=== PATIENT | female | born 1965 | race Caucasian/White ===

== ENCOUNTER → 2018-02-18 11:58 | Outpatient (CLI) | payer OTHER, SELFPAY ==
[2018-02-18 14:37] LABS: Anion Gap 9 (5-15); BUN 15 mg/dL (7-18); BUN/Creat Ratio 16.1 RATIO (10-20); Calcium,Total 9.2 mg/dL (8.5-10.1); Chloride 102 mmol/L (98-107); Creatinine, Serum 0.93 mg/dL (0.55-1.02); EST Glomerular Filtration Rate 67 mL/min (>60); Est Glom Filt Rate - Afr Amer 81 mL/min (>60); Glucose 94 mg/dL (74-106); Potassium 4.1 mmol/L (3.5-5.1); Sodium Level 140 mmol/L (136-145)
== END ==
PROVIDERS: Family Provider Family Medicine; PCP Family Medicine; Visit Provider Family Medicine
DX: I10 Essential (primary) hypertension (principal); E03.9 Hypothyroidism, unspecified
CPT/HCPCS: 36415; 80048; 84443

== ENCOUNTER → 2018-02-18 15:49 | Outpatient (CLI) | payer OTHER, SELFPAY ==
[2018-02-25 12:09] LABS: HPV Reflexed? NOT INDICATED
== END ==
PROVIDERS: Visit Provider Obstetrics & Gynecology
DX: Z12.4 Encounter for screening for malignant neoplasm of cervix (principal)
CPT/HCPCS: 88175; G0145

== ENCOUNTER → 2018-07-11 08:16 | Outpatient (CLI) | payer OTHER, SELFPAY ==
--- NOTE | 2018-07-11 08:20 | BI_ITS ---
MAMMOGRAPHY - BILATERAL SCREENING REASON FOR EXAM: Female, 52 years old. Routine annual screening examination. PERTINENT HISTORY: Mother with breast cancer. TECHNIQUE: Digital bilateral breast claudia (3D mammographic acquisition) in the CC and MLO projections. 2-D mediolateral oblique (MLO) and craniocaudad (CC) views of both breasts were obtained. CAD: Full Field Digital Mammography with Computer Added Detection was performed. COMPARISON: Comparison is made with prior study dated March 06, 2016 and July 13, 2014. FINDINGS: Breast Composition: The breasts are heterogeneously dense, which may obscure small masses. There are no dominant masses or suspicious calcifications. No other significant abnormalities are identified. There has been no significant change since the prior study. BI/SCREENING MAMM (CAD), BILAT IMPRESSION: Stable bilateral screening mammogram. Yearly follow-up mammogram recommended. (A) ASSESSMENT CATEGORY: BIRADS Category 1: Negative. A letter regarding these results will be sent to the patient by the facility within 30 days. Approximately 10% of breast cancers are not detected by mammography. A normal mammogram should not delay biopsy of a clinically suspicious abnormality. [id number] Electronically Signed: Ashwin Hartley MD at 8:17 EST Tel [phone], Service support ,
== END ==
PROVIDERS: Family Provider Family Medicine; PCP Family Medicine; Referring Provider Obstetrics & Gynecology; Visit Provider Obstetrics & Gynecology
DX: Z12.31 Encounter for screening mammogram for malignant neoplasm of breast (principal)
CPT/HCPCS: 77063; 77067

== ENCOUNTER → 2018-11-04 09:40 | Outpatient (CLI) | payer OTHER, SELFPAY ==
[2018-11-04 13:42] LABS: Anion Gap 3 (5-15); BUN 12 mg/dL (7-18); BUN/Creat Ratio 13.2 RATIO (10-20); Calcium,Total 8.7 mg/dL (8.5-10.1); Chloride 105 mmol/L (98-107); Cholesterol 171 mg/dL (200); Creatinine, Serum 0.91 mg/dL (0.55-1.02); EST Glomerular Filtration Rate 69 mL/min (>60); Est Glom Filt Rate - Afr Amer 84 mL/min (>60); Free T3 3.9 pg/mL (2.18-3.98); Glucose 77 mg/dL (74-106); High Density Lipoprotein 73 mg/dL; Potassium 3.7 mmol/L (3.5-5.1); Sodium Level 137 mmol/L (136-145); T4 Total, Thyroxin 8.2 ug/dL (4.8-13.9); Thyroid Stim Hormone (TSH) 3.05 uIU/mL (0.358-3.74); Triglycerides 58 mg/dL; Very Low Density Lipoprotein 12 mg/dL (5-40)
== END ==
PROVIDERS: Family Provider Family Medicine; PCP Family Medicine; Referring Provider Family Medicine; Visit Provider Family Medicine
DX: Z00.00 Encounter for general adult medical examination without abnormal findings (principal); E03.9 Hypothyroidism, unspecified; I10 Essential (primary) hypertension
CPT/HCPCS: 36415; 80048; 80061; 84436; 84443; 84481

== ENCOUNTER → 2019-05-05 09:35 | Outpatient (CLI) | payer OTHER, SELFPAY ==
[2017-06-05 14:42] VITALS: BMI 23.0
[2019-05-05 13:25] LABS: Anion Gap 6 (5-15); BUN 10 mg/dL (7-18); BUN/Creat Ratio 10.8 RATIO (10-20); Chloride 106 mmol/L (98-107); Cholesterol 173 mg/dL (200); Creatinine, Serum 0.92 mg/dL (0.55-1.02); EST Glomerular Filtration Rate 68 mL/min (>60); Est Glom Filt Rate - Afr Amer 82 mL/min (>60); Free T3 3.8 pg/mL (2.18-3.98); Glucose 73 mg/dL (74-106); High Density Lipoprotein 69 mg/dL; Sodium Level 141 mmol/L (136-145); T4 Total, Thyroxin 9.8 ug/dL (4.8-13.9); Thyroid Stim Hormone (TSH) 3.31 uIU/mL (0.358-3.74); Triglycerides 58 mg/dL; Very Low Density Lipoprotein 12 mg/dL (5-40)
== END ==
PROVIDERS: Family Provider Family Medicine; PCP Family Medicine; Referring Provider Family Medicine; Visit Provider Family Medicine
DX: E03.9 Hypothyroidism, unspecified (principal); I10 Essential (primary) hypertension
CPT/HCPCS: 36415; 80048; 80061; 84436; 84443; 84481

== ENCOUNTER → 2019-07-17 10:16 | Outpatient (CLI) | payer OTHER, SELFPAY ==
--- NOTE | 2019-07-17 10:18 | BI_ITS ---
MAMMOGRAPHY - BILATERAL SCREENING 3-D TOMOSYNTHESIS REASON FOR EXAM: Female, 53 years old. Annual routine screening mammogram. PERTINENT HISTORY: History of breast cancer in mother.. TECHNIQUE: 2-D mammograms and 3-D Tomosynthesis of the breast (s) were performed. CAD was performed. COMPARISON: July 11, 2018, March 06, 2016 FINDINGS: The breast composition is composed of scattered fibroglandular density. No dense spiculated masses or suspicious microcalcifications are identified. No architectural distortion is identified. There is no skin thickening or retraction. There has been no significant change since the prior study. BI/SCREEN MAMM (CAD) W/JUDY BILAT IMPRESSION: No mammographic signs of malignancy. Routine yearly mammograms recommended. ASSESSMENT CATEGORY: BIRADS Category 1: Negative. A letter regarding these results will be sent to the patient by the facility within 30 days. FOLLOW UP RECOMMENDATION: Yearly follow up mammogram recommended. (A) Approximately 10% of breast cancers are not detected by mammography. A normal mammogram should not delay biopsy of a clinically suspicious abnormality. Electronically Signed: Servando Crooks MD at 10:36 EST , Service support ,
== END ==
PROVIDERS: Family Provider Family Medicine; PCP Family Medicine; Referring Provider Obstetrics & Gynecology; Visit Provider Obstetrics & Gynecology
DX: Z12.31 Encounter for screening mammogram for malignant neoplasm of breast (principal); Z80.3 Family history of malignant neoplasm of breast
CPT/HCPCS: 77063; 77067

== ENCOUNTER → 2020-04-25 10:26 | Outpatient (CLI) | payer OTHER, SELFPAY ==
[2017-06-05 14:42] VITALS: BMI 23.0
[2020-04-25 13:03] LABS: Anion Gap 4 (5-15); BUN 9 mg/dL (7-18); Calcium,Total 9.1 mg/dL (8.5-10.1); Chloride 102 mmol/L (98-107); Cholesterol 188 mg/dL (200); Creatinine, Serum 0.82 mg/dL (0.55-1.02); EST Glomerular Filtration Rate 78 mL/min (>60); Est Glom Filt Rate - Afr Amer 94 mL/min (>60); Free T3 3.4 pg/mL (2.18-3.98); Glucose 79 mg/dL (74-106); High Density Lipoprotein 67 mg/dL; Potassium 3.7 mmol/L (3.5-5.1); Sodium Level 138 mmol/L (136-145); T4 Free Direct 1.01 ng/dL (0.76-1.46); Thyroid Stim Hormone (TSH) 3.29 uIU/mL (0.358-3.74); Triglycerides 61 mg/dL; Very Low Density Lipoprotein 12 mg/dL (5-40)
== END ==
PROVIDERS: PCP Family Medicine; Referring Provider Family Medicine; Visit Provider Family Medicine
DX: E03.9 Hypothyroidism, unspecified (principal); I10 Essential (primary) hypertension
CPT/HCPCS: 36415; 80048; 80061; 84439; 84443; 84481

== ENCOUNTER → 2020-07-30 15:28 | Outpatient (CLI) | payer OTHER, SELFPAY ==
[2017-06-05 14:42] VITALS: BMI 23.0
--- NOTE | 2020-07-30 15:30 | BI_ITS ---
MAMMOGRAPHY - BILATERAL SCREENING REASON FOR EXAM: Female, 54 years old. Routine annual screening examination. PERTINENT HISTORY: Mother with breast cancer. TECHNIQUE: Digital bilateral breast judy (3D mammographic acquisition) in the CC and MLO projections. 2-D mediolateral oblique (MLO) and craniocaudad (CC) views of both breasts were obtained. CAD: Full Field Digital Mammography with Computer Added Detection was performed. COMPARISON: Comparison is made with prior study dated 07/17/2019 and 07/11/2018. FINDINGS: Breast Composition: The breasts are heterogeneously dense, which may obscure small masses. There are no dominant masses or suspicious calcifications. No other significant abnormalities are identified. There has been no significant change since the prior study. BI/SCREEN MAMM (CAD) W/JUDY BILAT IMPRESSION: Stable bilateral screening mammogram. Yearly follow-up mammogram recommended. (A) ASSESSMENT CATEGORY: BIRADS Category 1: Negative. A letter regarding these results will be sent to the patient by the facility within 30 days. Approximately 10% of breast cancers are not detected by mammography. A normal mammogram should not delay biopsy of a clinically suspicious abnormality. [id number] Electronically Signed: Ashwin Hartley, at 8:39 EST , Service support ,
--- NOTE | 2020-07-30 15:37 | BD_ITS ---
STUDY: DUAL ENERGY X-RAY ABSORPTIOMETRY / DXA REASON FOR EXAM: Female, 54 years old. 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 COMPARISON: Comparison is made with prior study dated 08/08/2013. FINDINGS: Lumbar Spine (L1-L4): g/cm2 (1.003) / T-score (-1.5) / Z-score (-0.8) Findings are suggestive of osteopenia with a low fracture risk. Left Femur Total: g/cm2 (0.863) / T-score (-1.2) / Z-score (-0.6) Left Femoral Neck: g/cm2 (0.808) / T-score (-1.7) / Z-score (-0.7) Right Femur Total: g/cm2 (0.818) / T-score (-1.5) / Z-score (-0.9) Right Femoral Neck: g/cm2 (0.764) / T-score (-2.0) / Z-score (-1.0) The T-Scores on the most recent prior examination were: Lumbar Spine (L1-L4): There has been worsening of bone density since the previous examination. Left Femur Total: which represents a worsening of 1.3%. Right Femur Total: which represents a worsening of 4.6%. BD/Dexa Bone Density Study IMPRESSION: The patient is considered osteopenic as outlined below according to World Joel Organization (WHO) criteria with a moderate fracture risk. There has been worsening of bone density since the previous examination. Reference Information: The T-score is the number of standard deviations above or below the standard which is normal for young adults at their peak bone mineral density. The World Health Organization (WHO) interprets the T-scores as follows: Above -1 Normal bone density Between -1 and -2.5 Osteopenia Equal to / or below -2.5 Osteoporosis As a practical clinical guideline, osteopenia may be graded as follows: Mild -1 through -1.5 Moderate -1.6 through -2.0 Severe -2.1 through -2.4 The Z-score is the number of standard deviations above or below age-matched controls. A Z-score of less than -1.5 would be considered abnormal. References: 1. NIH Osteoporosis and Related Bone Diseases www osteo.org 2. International Society for Clinical Densitometry www iscd.org 3. National Osteoporosis Foundation www nof.org Electronically Signed: Ashwin Hatrley, at 14:12 EST , Service support ,
== END ==
PROVIDERS: PCP Family Medicine; Referring Provider Student in an Organized Health Care Education/Training Program; Visit Provider Student in an Organized Health Care Education/Training Program
DX: M85.80 Other specified disorders of bone density and structure, unspecified site (principal); Z78.0 Asymptomatic menopausal state; Z12.31 Encounter for screening mammogram for malignant neoplasm of breast; Z80.3 Family history of malignant neoplasm of breast
CPT/HCPCS: 77063; 77067; 77080

== ENCOUNTER 2020-12-19 06:36 | Outpatient (RCR) | payer OTHER, SELFPAY | END 2021-01-28 23:59 | LOC: IMMUN 06:36 | PROVIDERS: PCP Family Medicine; Referring Provider Family Medicine; Visit Provider Family Medicine | DX: Z23 Encounter for immunization (principal) | CPT/HCPCS: 0001A; 0002A; 91300 ==

== ENCOUNTER → 2021-04-24 08:13 | Outpatient (CLI) | payer OTHER, SELFPAY ==
[2021-04-24 10:40] LABS: Anion Gap 6 (5-15); BUN 11 mg/dL (7-18); BUN/Creat Ratio 14.2 RATIO (10-20); Calcium,Total 8.7 mg/dL (8.5-10.1); Chloride 109 mmol/L (98-107); Cholesterol 167 mg/dL (200); Creatinine, Serum 0.77 mg/dL (0.55-1.02); EST Glomerular Filtration Rate 83 mL/min (>60); Est Glom Filt Rate - Afr Amer 100 mL/min (>60); Free T3 3.5 pg/mL (2.18-3.98); Glucose 92 mg/dL (74-106); High Density Lipoprotein 56 mg/dL; Potassium 3.5 mmol/L (3.5-5.1); Sodium Level 142 mmol/L (136-145); T4 Free Direct 0.89 ng/dL (0.76-1.46); Thyroid Stim Hormone (TSH) 4.09 uIU/mL (0.358-3.74); Triglycerides 76 mg/dL; Very Low Density Lipoprotein 15 mg/dL (5-40)
== END ==
PROVIDERS: PCP Family Medicine; Referring Provider Family Medicine; Visit Provider Family Medicine
DX: Z00.00 Encounter for general adult medical examination without abnormal findings (principal); E03.9 Hypothyroidism, unspecified
CPT/HCPCS: 36415; 80048; 80061; 84439; 84443; 84481

== ENCOUNTER 2021-09-02 16:04 | Outpatient (CLI) | payer OTHER, SELFPAY ==
[2021-09-06 16:29] LABS: HPV APTIMA, High Risk Negative (Negative)
== END 2021-09-02 23:59 | disposition short-term general hospital (02) ==
LOC: LABSPEC 16:06
PROVIDERS: PCP Family Medicine; Visit Provider Student in an Organized Health Care Education/Training Program
DX: Z12.4 Encounter for screening for malignant neoplasm of cervix (principal)
CPT/HCPCS: 87624; 88175; G0145

== ENCOUNTER 2021-10-17 09:14 | Outpatient (CLI) | payer OTHER, SELFPAY ==
[2021-10-17 11:04] LABS: Anion Gap 5 (5-15); BUN 12 mg/dL (7-18); Calcium,Total 9.4 mg/dL (8.5-10.1); Chloride 106 mmol/L (98-107); Cholesterol 181 mg/dL (200); Creatinine, Serum 0.92 mg/dL (0.55-1.02); EST Glomerular Filtration Rate 67 mL/min (>60); Est Glom Filt Rate - Afr Amer 81 mL/min (>60); Free T3 3.4 pg/mL (2.18-3.98); Glucose 84 mg/dL (74-106); High Density Lipoprotein 67 mg/dL; Potassium 3.6 mmol/L (3.5-5.1); Sodium Level 139 mmol/L (136-145); T4 Free Direct 0.97 ng/dL (0.76-1.46); Thyroid Stim Hormone (TSH) 4.31 uIU/mL (0.358-3.74); Triglycerides 67 mg/dL; Very Low Density Lipoprotein 13 mg/dL (5-40)
== END 2021-10-17 23:59 | disposition home or self-care (01) ==
LOC: MFPLAB 09:15
PROVIDERS: PCP Family Medicine; Referring Provider Family Medicine; Visit Provider Family Medicine
DX: I10 Essential (primary) hypertension (principal); E03.9 Hypothyroidism, unspecified
CPT/HCPCS: 36415; 80048; 80061; 84439; 84443; 84481

== ENCOUNTER → 2021-12-17 | Outpatient (CLI) | payer OTHER, SELFPAY ==
--- NOTE | 2021-12-17 16:02 | BI_ITS ---
MAMMOGRAPHY - BILATERAL SCREENING REASON FOR EXAM: Female, 56 years old. Routine annual screening examination. PERTINENT HISTORY: Mother with breast cancer. TECHNIQUE: Digital bilateral breast judy (3D mammographic acquisition) in the CC and MLO projections. 2-D mediolateral oblique (MLO) and craniocaudad (CC) views of both breasts were obtained. CAD: Full Field Digital Mammography with Computer Added Detection was performed. COMPARISON: Comparison is made with prior study dated 07/30/2020 and 07/17/2019. FINDINGS: Breast Composition: The breasts are heterogeneously dense, which may obscure small masses. There are no dominant masses or suspicious calcifications. Stable benign-appearing bilateral axillary No other significant abnormalities are identified. There has been no significant change since the prior study. BI/SCRN MAMM (CAD)W/JUDY BILAT IMPRESSION: Stable bilateral screening mammogram. Yearly follow-up mammogram recommended. (A) ASSESSMENT CATEGORY: BIRADS Category 2: Benign. A letter regarding these results will be sent to the patient by the facility within 30 days. Approximately 10% of breast cancers are not detected by mammography. A normal mammogram should not delay biopsy of a clinically suspicious abnormality. [id number] Electronically Signed: Ashwin Hartley MD at 8:03 EDT ,
== END | disposition home or self-care (01) ==
LOC: OPBI 15:50
PROVIDERS: PCP Family Medicine; Visit Provider Student in an Organized Health Care Education/Training Program
DX: Z12.31 Encounter for screening mammogram for malignant neoplasm of breast (principal); Z80.3 Family history of malignant neoplasm of breast
CPT/HCPCS: 77063; 77067

== ENCOUNTER → 2022-01-14 | Outpatient (CLI) | payer OTHER, SELFPAY ==
[2022-01-14 10:53] LABS: Vitamin D,25 Hydroxy 39.6 ng/mL
[2022-01-14 11:06] LABS: AST(SGOT) 24 U/L (15-37); Alanine Aminotransfer ALT/SGPT 29 U/L (13-56); Albumin, Serum 3.8 g/dL (3.2-5.0); Alkaline Phosphatase 75 U/L (45-117); Anion Gap 4 (5-15); BUN 12 mg/dL (7-18); BUN/Creat Ratio 14.7 RATIO (10-20); Calcium,Total 9.2 mg/dL (8.5-10.1); Chloride 103 mmol/L (98-107); Creatinine, Serum 0.82 mg/dL (0.55-1.02); EST Glomerular Filtration Rate 77 mL/min (>60); Est Glom Filt Rate - Afr Amer 93 mL/min (>60); Free T3 3.9 pg/mL (2.18-3.98); Globulin 3.9 g/dL (2.2-4.2); Glucose 99 mg/dL (74-106); Potassium 3.7 mmol/L (3.5-5.1); Protein, Total 7.7 g/dL (6.4-8.2); Sodium Level 138 mmol/L (136-145); T4 Free Direct 1.45 ng/dL (0.76-1.46); Thyroid Stim Hormone (TSH) 0.66 uIU/mL (0.358-3.74)
== END | disposition home or self-care (01) ==
LOC: MTLAB 08:32
PROVIDERS: PCP Family Medicine; Referring Provider Nurse Practitioner Adult Health; Visit Provider Nurse Practitioner Adult Health
DX: E03.8 Other specified hypothyroidism (principal); E55.9 Vitamin D deficiency, unspecified
CPT/HCPCS: 36415; 80053; 82306; 84439; 84443; 84481

== ENCOUNTER → 2022-03-18 | Outpatient (CLI) | payer OTHER, SELFPAY ==
[2022-03-18 10:18] LABS: T4 Free Direct 1.37 ng/dL (0.76-1.46); Thyroid Stim Hormone (TSH) 0.65 uIU/mL (0.358-3.74)
== END | disposition home or self-care (01) ==
LOC: MTLAB 07:13
PROVIDERS: PCP Family Medicine; Referring Provider Nurse Practitioner Adult Health; Visit Provider Nurse Practitioner Adult Health
DX: E03.8 Other specified hypothyroidism (principal)
CPT/HCPCS: 36415; 84439; 84443; 84481

== ENCOUNTER → 2022-04-22 | Outpatient (CLI) | payer OTHER, SELFPAY ==
[2022-04-22 18:21] LABS: Vitamin D,25 Hydroxy 43.9 ng/mL
[2022-04-22 18:29] LABS: AST(SGOT) 17 U/L (15-37); Alanine Aminotransfer ALT/SGPT 20 U/L (13-56); Albumin, Serum 3.8 g/dL (3.2-5.0); Alkaline Phosphatase 69 U/L (45-117); Anion Gap 6 (5-15); BUN 14 mg/dL (7-18); BUN/Creat Ratio 15.3 RATIO (10-20); Calcium,Total 9.3 mg/dL (8.5-10.1); Chloride 105 mmol/L (98-107); Creatinine, Serum 0.92 mg/dL (0.55-1.02); EST Glomerular Filtration Rate 67 mL/min (>60); Est Glom Filt Rate - Afr Amer 82 mL/min (>60); Free T3 2.8 pg/mL (2.18-3.98); Globulin 3.9 g/dL (2.2-4.2); Glucose 107 mg/dL (74-106); Potassium 3.3 mmol/L (3.5-5.1); Protein, Total 7.7 g/dL (6.4-8.2); Sodium Level 139 mmol/L (136-145); T4 Free Direct 1.04 ng/dL (0.76-1.46)
== END | disposition home or self-care (01) ==
LOC: MTLAB 16:18
PROVIDERS: PCP Family Medicine; Referring Provider Internal Medicine Endocrinology, Diabetes & Metabolism; Visit Provider Internal Medicine Endocrinology, Diabetes & Metabolism
DX: E03.8 Other specified hypothyroidism (principal); E55.9 Vitamin D deficiency, unspecified
CPT/HCPCS: 36415; 80053; 82306; 84439; 84443; 84481

== ENCOUNTER → 2022-06-03 | Outpatient (CLI) | payer OTHER, SELFPAY ==
[2022-06-03 11:06] LABS: Free T3 3.8 pg/mL (2.18-3.98); Thyroid Stim Hormone (TSH) 1.18 uIU/mL (0.358-3.74)
== END | disposition home or self-care (01) ==
LOC: MTLAB 08:55
PROVIDERS: PCP Family Medicine; Referring Provider Internal Medicine Endocrinology, Diabetes & Metabolism; Visit Provider Internal Medicine Endocrinology, Diabetes & Metabolism
DX: E03.8 Other specified hypothyroidism (principal)
CPT/HCPCS: 36415; 84439; 84443; 84481

== ENCOUNTER → 2022-09-14 | Outpatient (CLI) | payer OTHER, SELFPAY ==
[2022-09-14 10:23] LABS: ALB/GLOB Ratio 0.9 RATIO (0.9-2.4); AST(SGOT) 19 U/L (15-37); Alanine Aminotransfer ALT/SGPT 22 U/L (13-56); Albumin, Serum 3.6 g/dL (3.2-5.0); Alkaline Phosphatase 72 U/L (45-117); Anion Gap 8 (5-15); BUN 14 mg/dL (7-18); BUN/Creat Ratio 15.4 RATIO (10-20); Calcium,Total 9.1 mg/dL (8.5-10.1); Chloride 105 mmol/L (98-107); Creatinine, Serum 0.91 mg/dL (0.55-1.02); EST Glomerular Filtration Rate 68 mL/min (>60); Est Glom Filt Rate - Afr Amer 82 mL/min (>60); Free T3 3.4 pg/mL (2.18-3.98); Globulin 3.8 g/dL (2.2-4.2); Glucose 92 mg/dL (74-106); Potassium 3.5 mmol/L (3.5-5.1); Protein, Total 7.4 g/dL (6.4-8.2); Sodium Level 140 mmol/L (136-145); T4 Free Direct 1.33 ng/dL (0.76-1.46); Thyroid Stim Hormone (TSH) 1.81 uIU/mL (0.358-3.74)
== END | disposition home or self-care (01) ==
PROVIDERS: PCP Family Medicine; Referring Provider Internal Medicine Endocrinology, Diabetes & Metabolism; Visit Provider Internal Medicine Endocrinology, Diabetes & Metabolism
DX: E03.8 Other specified hypothyroidism (principal)
CPT/HCPCS: 36415; 80053; 84439; 84443; 84481

== ENCOUNTER → 2022-11-20 | Outpatient (CLI) | payer OTHER, SELFPAY ==
[2022-11-20 10:22] LABS: T4 Total, Thyroxin 10.5 ug/dL (4.8-13.9); Thyroid Stim Hormone (TSH) 1.05 uIU/mL (0.358-3.74)
[2022-11-23 11:07] LABS: T4 Free Direct 1.15 ng/dL (0.76-1.46)
== END | disposition home or self-care (01) ==
PROVIDERS: PCP Family Medicine; Referring Provider Internal Medicine Endocrinology, Diabetes & Metabolism; Visit Provider Internal Medicine Endocrinology, Diabetes & Metabolism
DX: E03.8 Other specified hypothyroidism (principal)
CPT/HCPCS: 36415; 84436; 84439; 84443; 84481

== ENCOUNTER → 2022-12-18 | Outpatient (CLI) | payer OTHER, SELFPAY ==
[2022-12-18 10:30] LABS: ALB/GLOB Ratio 1.1 RATIO (0.9-2.4); AST(SGOT) 21 U/L (15-37); Alanine Aminotransfer ALT/SGPT 27 U/L (13-56); Albumin, Serum 3.8 g/dL (3.2-5.0); Alkaline Phosphatase 76 U/L (45-117); Anion Gap 3 (5-15); BUN 13 mg/dL (7-18); BUN/Creat Ratio 15.5 RATIO (10-20); Calcium,Total 9.6 mg/dL (8.5-10.1); Chloride 106 mmol/L (98-107); Creatinine, Serum 0.84 mg/dL (0.55-1.02); EST Glomerular Filtration Rate 75 mL/min (>60); Est Glom Filt Rate - Afr Amer 90 mL/min (>60); Free T3 3.2 pg/mL (2.18-3.98); Globulin 3.6 g/dL (2.2-4.2); Glucose 87 mg/dL (74-106); Potassium 3.9 mmol/L (3.5-5.1); Protein, Total 7.4 g/dL (6.4-8.2); Sodium Level 138 mmol/L (136-145); T4 Total, Thyroxin 11.7 ug/dL (4.8-13.9); Thyroid Stim Hormone (TSH) 1.27 uIU/mL (0.358-3.74)
== END | disposition home or self-care (01) ==
LOC: MTLAB 08:32
PROVIDERS: PCP Family Medicine; Referring Provider Internal Medicine Endocrinology, Diabetes & Metabolism; Visit Provider Internal Medicine Endocrinology, Diabetes & Metabolism
DX: E03.8 Other specified hypothyroidism (principal)
CPT/HCPCS: 36415; 80053; 84436; 84443; 84481

== ENCOUNTER → 2022-12-23 | Outpatient (CLI) | payer OTHER, SELFPAY ==
--- NOTE | 2022-12-23 09:01 | BI_ITS ---
MAMMOGRAPHY - BILATERAL SCREENING REASON FOR EXAM: Female, 57 years old. Routine annual screening examination. PERTINENT HISTORY: Mother with breast cancer. TECHNIQUE: Digital bilateral breast judy (3D mammographic acquisition) in the CC and MLO projections. 2-D mediolateral oblique (MLO) and craniocaudad (CC) views of both breasts were obtained. CAD: Full Field Digital Mammography with Computer Added Detection was performed. COMPARISON: Comparison is made with prior study December 17, 2021 and July 30, 2020. FINDINGS: Breast Composition: The breasts are heterogeneously dense, which may obscure small masses. There are no dominant masses or suspicious calcifications. Stable small benign-appearing left axillary lymph nodes. No other significant abnormalities are identified. There has been no significant change since the prior study. BI/SCRN MAMM (CAD)W/JUDY BILAT IMPRESSION: Stable bilateral screening mammogram. Yearly follow-up mammogram recommended. (A) ASSESSMENT CATEGORY: BIRADS Category 2: Benign. A letter regarding these results will be sent to the patient by the facility within 30 days. Approximately 10% of breast cancers are not detected by mammography. A normal mammogram should not delay biopsy of a clinically suspicious abnormality. [id number] Electronically Signed: Ashwin Hartley MD at 10:45 EDT ,
--- NOTE | 2022-12-23 09:08 | BD_ITS ---
STUDY: DUAL ENERGY X-RAY ABSORPTIOMETRY / DXA REASON FOR EXAM: Female, 57 years old. M85.89 TECHNIQUE: Bone Mineral Density (BMD) measurements of lumbar spine and bilateral hips were obtained. COMPARISON: Comparison is made with prior study dated July 30, 2020. FINDINGS: Lumbar Spine (L1-L4): g/cm2 (0.825) / T-score (-2.0) / Z-score (-0.9) Findings are suggestive of osteopenia with a moderate fracture risk. Left Femur Total: g/cm2 (0.785) / T-score (-1.3) / Z-score (-0.5) Left Femoral Neck: g/cm2 (0.649) / T-score (-1.8) / Z-score (-0.7) Right Femur Total: g/cm2 (0.775) / T-score (-1.4) / Z-score (-0.6) Right Femoral Neck: g/cm2 (0.641) / T-score (-1.9) / Z-score (-0.8) The T-Scores on the most recent prior examination were: Lumbar Spine (L1-L4): There has been worsening of bone density since the previous examination. Left Femur Total: which represents a worsening of 1.9%. Right Femur Total: which represents an improvement of 2.3%. BD/Dexa Bone Density Study IMPRESSION: The patient is considered osteopenic as outlined below according to World Joel Organization (WHO) criteria with a moderate fracture risk. There has been worsening of bone density since the previous examination. Reference Information: The T-score is the number of standard deviations above or below the standard which is normal for young adults at their peak bone mineral density. The World Health Organization (WHO) interprets the T-scores as follows: Above -1 Normal bone density Between -1 and -2.5 Osteopenia Equal to / or below -2.5 Osteoporosis As a practical clinical guideline, osteopenia may be graded as follows: Mild -1 through -1.5 Moderate -1.6 through -2.0 Severe -2.1 through -2.4 The Z-score is the number of standard deviations above or below age-matched controls. A Z-score of less than -1.5 would be considered abnormal. References: 1. NIH Osteoporosis and Related Bone Diseases www osteo.org 2. International Society for Clinical Densitometry www iscd.org 3. National Osteoporosis Foundation www nof.org Electronically Signed: Ashwin Hartley MD at 14:31 EDT ,
== END | disposition home or self-care (01) ==
PROVIDERS: PCP Family Medicine; Referring Provider Internal Medicine Endocrinology, Diabetes & Metabolism; Visit Provider Internal Medicine Endocrinology, Diabetes & Metabolism
DX: Z12.31 Encounter for screening mammogram for malignant neoplasm of breast (principal); M85.89 Other specified disorders of bone density and structure, multiple sites; Z80.3 Family history of malignant neoplasm of breast
CPT/HCPCS: 77063; 77067; 77080

== ENCOUNTER → 2022-12-30 | Outpatient (CLI) | payer OTHER, SELFPAY ==
--- NOTE | 2022-12-30 07:24 | US_ITS ---
STUDY: ABDOMINAL ULTRASOUND - RIGHT UPPER QUADRANT REASON FOR VISIT: Female, 57 years old Disorder of bilirubin metabolism TECHNIQUE: Ultrasound evaluation of the right upper quadrant was performed with real-time and static kirby-scale imaging. TECHNICAL QUALITY: Adequate. COMPARISON: None. FINDINGS: Liver: The liver measures 14.4 cm. There is increased echogenicity consistent with a mild degree of fatty infiltration. The bile ducts are within normal limits. There is hepatic color flow. The direction of portal flow is hepatopetal. There is no demonstrated mass lesion. Gallbladder: Normal distended gallbladder. The gallbladder wall measures 1.9 mm. There is a negative sonographic Cortés''s sign. There is no pericholecystic fluid. There are no gallstones. Common Bile Duct (C.B.D.): The common bile duct measures 2.9 mm. Pancreas: Normal size of the head, body and tail of the pancreas. There is normal echogenicity of the pancreas. There is no demonstrated pancreatic mass or cyst. Right Kidney: Normal size of the right kidney. The right kidney measures 10.2 cm x 4.4 cm x 3.6 cm. Normal renal cortex. The right cortex measures 1.3 cm. There is no demonstrated renal mass or cyst. There is no right hydronephrosis. US/Abdomen Limited IMPRESSION: There is a mild degree of fatty infiltration of the liver. Electronically Signed: Ashwin Hartley MD at 15:18 EDT ,
== END | disposition home or self-care (01) ==
LOC: US 07:22
PROVIDERS: PCP Family Medicine; Referring Provider Internal Medicine Endocrinology, Diabetes & Metabolism; Visit Provider Internal Medicine Endocrinology, Diabetes & Metabolism
DX: E80.7 Disorder of bilirubin metabolism, unspecified (principal); K76.0 Fatty (change of) liver, not elsewhere classified
CPT/HCPCS: 76705

== ENCOUNTER → 2023-01-15 | Outpatient (CLI) | payer OTHER, SELFPAY ==
[2023-01-15 12:42] LABS: AST(SGOT) 27 U/L (15-37); Alanine Aminotransfer ALT/SGPT 18 U/L (13-56); Albumin, Serum 3.7 g/dL (3.2-5.0); Alkaline Phosphatase 69 U/L (45-117); Anion Gap 8 (5-15); BUN 13 mg/dL (7-18); BUN/Creat Ratio 14.1 RATIO (10-20); Calcium,Total 9.5 mg/dL (8.5-10.1); Chloride 104 mmol/L (98-107); Creatinine, Serum 0.92 mg/dL (0.55-1.02); EST Glomerular Filtration Rate 67 mL/min (>60); Est Glom Filt Rate - Afr Amer 81 mL/min (>60); Globulin 3.8 g/dL (2.2-4.2); Glucose 88 mg/dL (74-106); Potassium 3.6 mmol/L (3.5-5.1); Protein, Total 7.5 g/dL (6.4-8.2); Sodium Level 140 mmol/L (136-145)
[2023-01-15 12:47] LABS: PTHIN 48.5 pg/mL (18.4-80.1)
== END | disposition home or self-care (01) ==
LOC: MTLAB 10:12
PROVIDERS: PCP Family Medicine; Referring Provider Internal Medicine Endocrinology, Diabetes & Metabolism; Visit Provider Internal Medicine Endocrinology, Diabetes & Metabolism
DX: E04.0 Nontoxic diffuse goiter (principal); E21.5 Disorder of parathyroid gland, unspecified; E55.9 Vitamin D deficiency, unspecified; E03.8 Other specified hypothyroidism
CPT/HCPCS: 36415; 80053; 82306; 83970

== ENCOUNTER → 2023-02-17 | Outpatient (CLI) | payer OTHER, SELFPAY ==
[2023-02-17 16:56] LABS: T4 Total, Thyroxin 11.4 ug/dL (4.8-13.9); Thyroid Stim Hormone (TSH) 0.45 uIU/mL (0.358-3.74)
[2023-02-19 08:32] LABS: T4 Free Direct 1.26 ng/dL (0.76-1.46)
[2023-02-28 02:06] LABS: Anti-Thyroglobulin AB 30.1 IU/mL (0.0-0.9); Thyroglobulin RIA 9.7 ng/mL (.); Thyroid Peroxidase AB 208 IU/mL (0-34)
== END | disposition home or self-care (01) ==
LOC: MTLAB 11:52
PROVIDERS: PCP Family Medicine; Referring Provider Physician Assistant; Visit Provider Physician Assistant
DX: E03.8 Other specified hypothyroidism (principal)
CPT/HCPCS: 36415; 84432; 84436; 84439; 84443; 86376; 86800

== ENCOUNTER → 2023-03-17 | Outpatient (CLI) | payer OTHER, SELFPAY | END | disposition home or self-care (01) | PROVIDERS: PCP Family Medicine; Visit Provider Family Medicine | DX: J02.9 Acute pharyngitis, unspecified (principal) | CPT/HCPCS: 87070 ==

== ENCOUNTER → 2023-06-24 | Outpatient (CLI) | payer OTHER, SELFPAY ==
[2023-06-24 10:34] LABS: ALB/GLOB Ratio 0.9 RATIO (0.9-2.4); AST(SGOT) 19 U/L (15-37); Alanine Aminotransfer ALT/SGPT 20 U/L (13-56); Albumin, Serum 3.5 g/dL (3.2-5.0); Alkaline Phosphatase 63 U/L (45-117); Anion Gap 9 (5-15); BUN 10 mg/dL (7-18); BUN/Creat Ratio 10.6 RATIO (10-20); Calcium,Total 9.1 mg/dL (8.5-10.1); Chloride 104 mmol/L (98-107); Creatinine, Serum 0.94 mg/dL (0.55-1.02); EST Glomerular Filtration Rate 65 mL/min (>60); Est Glom Filt Rate - Afr Amer 79 mL/min (>60); Free T3 3.4 pg/mL (2.18-3.98); Globulin 3.8 g/dL (2.2-4.2); Glucose 117 mg/dL (74-106); Potassium 3.4 mmol/L (3.5-5.1); Protein, Total 7.3 g/dL (6.4-8.2); Sodium Level 139 mmol/L (136-145); Thyroid Stim Hormone (TSH) 1.37 uIU/mL (0.358-3.74)
== END | disposition home or self-care (01) ==
LOC: MTLAB 08:26
PROVIDERS: PCP Family Medicine; Referring Provider Physician Assistant; Visit Provider Physician Assistant
DX: E03.8 Other specified hypothyroidism (principal)
CPT/HCPCS: 36415; 80053; 84439; 84443; 84481

== ENCOUNTER → 2023-12-22 | Outpatient (CLI) | payer OTHER, SELFPAY ==
[2023-12-22 10:51] LABS: Vitamin D,25 Hydroxy 58.6 ng/mL
[2023-12-22 10:58] LABS: ALB/GLOB Ratio 1.1 RATIO (0.9-2.4); AST(SGOT) 28 U/L (15-37); Alanine Aminotransfer ALT/SGPT 21 U/L (13-56); Albumin, Serum 3.8 g/dL (3.2-5.0); Alkaline Phosphatase 63 U/L (45-117); Anion Gap 3 (5-15); BUN 9 mg/dL (7-18); BUN/Creat Ratio 9.4 RATIO (10-20); Calcium,Total 9.4 mg/dL (8.5-10.1); Chloride 106 mmol/L (98-107); Creatinine, Serum 0.96 mg/dL (0.55-1.02); EST Glomerular Filtration Rate 64 mL/min (>60); Est Glom Filt Rate - Afr Amer 77 mL/min (>60); Free T3 3.6 pg/mL (2.18-3.98); Globulin 3.6 g/dL (2.2-4.2); Glucose 98 mg/dL (74-106); Potassium 3.8 mmol/L (3.5-5.1); Protein, Total 7.4 g/dL (6.4-8.2); Sodium Level 139 mmol/L (136-145); T4 Free Direct 1.34 ng/dL (0.76-1.46); Thyroid Stim Hormone (TSH) 1.72 uIU/mL (0.358-3.74)
== END | disposition home or self-care (01) ==
PROVIDERS: PCP Family Medicine; Referring Provider Internal Medicine Endocrinology, Diabetes & Metabolism; Visit Provider Internal Medicine Endocrinology, Diabetes & Metabolism
DX: E03.8 Other specified hypothyroidism (principal); E55.9 Vitamin D deficiency, unspecified
CPT/HCPCS: 36415; 80053; 82306; 84439; 84443; 84481

== ENCOUNTER → 2024-06-30 | Outpatient (CLI) | payer OTHER, SELFPAY ==
[2024-06-30 11:14] LABS: AST(SGOT) 21 U/L (15-37); Alanine Aminotransfer ALT/SGPT 16 U/L (13-56); Albumin, Serum 3.6 g/dL (3.2-5.0); Alkaline Phosphatase 60 U/L (45-117); Anion Gap 5 (5-15); BUN 10 mg/dL (7-18); BUN/Creat Ratio 11.7 RATIO (10-20); Calcium,Total 8.8 mg/dL (8.5-10.1); Chloride 107 mmol/L (98-107); Creatinine, Serum 0.86 mg/dL (0.55-1.02); EST Glomerular Filtration Rate 73 mL/min (>60); Est Glom Filt Rate - Afr Amer 88 mL/min (>60); Free T3 3.5 pg/mL (2.18-3.98); Globulin 3.5 g/dL (2.2-4.2); Glucose 86 mg/dL (74-106); Potassium 3.7 mmol/L (3.5-5.1); Protein, Total 7.1 g/dL (6.4-8.2); Sodium Level 141 mmol/L (136-145); T4 Free Direct 1.17 ng/dL (0.76-1.46)
== END | disposition home or self-care (01) ==
LOC: MTLAB 08:39
PROVIDERS: PCP Family Medicine; Referring Provider Internal Medicine Endocrinology, Diabetes & Metabolism; Visit Provider Internal Medicine Endocrinology, Diabetes & Metabolism
DX: E03.8 Other specified hypothyroidism (principal)
CPT/HCPCS: 36415; 80053; 84439; 84443; 84481

== ENCOUNTER → 2024-12-27 | Outpatient (CLI) | payer OTHER, SELFPAY ==
[2024-12-27 11:19] LABS: ALB/GLOB Ratio 1.4 RATIO (0.9-2.4); AST(SGOT) 27 U/L (<=31); Alanine Aminotransfer ALT/SGPT 14 U/L (<=34); Albumin, Serum 4.2 g/dL (3.5-5.0); Alkaline Phosphatase 56 U/L (35-104); Anion Gap 11 (5-15); BUN 12 mg/dL (4-19); BUN/Creat Ratio 13.1 RATIO (10-20); Calcium,Total 9.6 mg/dL (7.6-11.0); Carbon Dioxide 24.3 mmol/L (21.0-32.0); Chloride 103 mmol/L (98-108); Creatinine, Serum 0.91 mg/dL (0.70-1.20); EST Glomerular Filtration Rate 73 (>60); Glucose 91 mg/dL (70-99); Potassium 3.9 mmol/L (3.3-5.1); Protein, Total 7.1 g/dL (5.9-8.4); Sodium Level 138 mmol/L (133-145); Total Bilirubin 1.02 mg/dL (0.00-1.30); Vitamin D,25 Hydroxy 43.7 ng/mL (30-100)
== END | disposition home or self-care (01) ==
LOC: MTLAB 08:35
PROVIDERS: PCP Family Medicine; Referring Provider Internal Medicine Endocrinology, Diabetes & Metabolism; Visit Provider Internal Medicine Endocrinology, Diabetes & Metabolism
DX: E03.8 Other specified hypothyroidism (principal); E55.9 Vitamin D deficiency, unspecified
CPT/HCPCS: 36415; 80053; 82306; 84439; 84443; 84481

== ENCOUNTER → 2025-04-06 | Outpatient (CLI) | payer OTHER, SELFPAY ==
[2025-04-06 13:32] LABS: Cholesterol 180 mg/dL (<=200); Low Density Lipoprotein Calc. 99 mg/dL; Triglycerides 55 mg/dL; Very Low Density Lipoprotein 11 mg/dL (5-40); cholesterol:hdl ratio screen 2.58
== END | disposition home or self-care (01) ==
LOC: MFPLAB 10:06
PROVIDERS: PCP Family Medicine; Visit Provider Family Medicine
DX: I10 Essential (primary) hypertension (principal)
CPT/HCPCS: 36415; 80061

== ENCOUNTER → 2025-07-11 | Outpatient (CLI) | payer OTHER, SELFPAY ==
--- OUTSIDE RECORDS SUMMARY | 2025-07-11 10:20 | XMS RPT_ITS | CCD ---
Author Organization [facility] Care Team Providers Care Senior Pharmacy Technician Name Role Phone Daya MENEZES, Oscar Aburto Primary Care Provider SILVESTRE HERRING JR Attending Unavailable OSCAR GELLER Primary Care Unavailable Daya MENEZES, Dr. Moore Primary Care Provider [phone] Dr. Socrates Lombardo DO Attending Provider Dr. Socrates Lombardo DO Referring Provider Anisha Sahni MD Attending Provider Anisha Sahni Attending Unavailable Oscar Geller Primary Care Unavailable Socrates Lombardo Attending Unavailable Oscar Geller Primary Care Unavailable Socrates Lombardo Referring Unavailable Socrates Lombardo Attending Unavailable Oscar Geller Primary Care Unavailable Socrates Lombardo Referring Unavailable Allergies Allergy Classification Reported Allergen(s) Allergy Type Date of Onset Reaction(s) Facility (2 sources) Latex; Translations: [LATEX] Drug Intolerance 4 [facility] Medications Current Medications Medication Drug Class(es) Dates Sig (Normalized) Sig (Original) aspirin 81 mg delayed release oral tablet (16 sources) Platelet Aggregation Inhibitor, Nonsteroidal Anti-inflammator y Drug Start: 7 take 1 tablet by mouth once daily Aspirin 81 MG tablet Active 81 mg PO DAILY@0800 0 June 07, 2017 12:00am hydroCHLOROthiazide 25 mg oral tablet (20 sources) Thiazide Diuretic Start: 7 Hydrochlorothiazide 25 MG tablet Active 12.5 mg PO DAILY 0 0 June 07, 2017 10:36am Start: 06-07-2017 take 12.5 mg by mout h once daily Hydrochlorothiazide Active 12.5 MG PO DAILY 0 June 07, 2017 10:36am Start: 06-05-2017 End: 06-07-2017 take 1 tablet by mouth once daily Hydrochlorothiazide 25 MG tablet Discontinued 25 mg PO DAILY June 05, 2017 12:00am June 07, 2017 10:37am Comment on above: Take 12.5 mg by mout h once daily. thyroid (fci) 30 mg oral tablet (17 sources) Start: 06-05-2017 take 1 tablet by mouth once daily Thyroid (Pork) ([place] Thyroid) 30 MG tablet Active 15 mg PO DAILY June 05, 2017 12:00am Comment on above: Take 30 mg by mouth once daily. Completed/Discontinued Medications Medication Drug Class(es) Dates Sig (Normalized) Sig (Original) Calcium Carbonate / Cholecalciferol (1 source) Vitamin D CALCIUM CARB/VIT D3/MINERALS (CALCIUM CARBONATE-VIT D3-MIN) 1,200 mgcalcium -1,000 unit chew Indications: Pruritus ani Take by mouth. 0 Active Comment on above: Take by mouth. CPAP (1 source) Start: 08-13-2020 CPAP Indications: TRISH on CPAP New Device: Auto PAP with humidification set at a range of 7-12 cmH2O. Lifetime supplies. 1 Device 08/13/2020 Active Comment on above: New Device: Auto PAP with humidification set at a range of 7- 12 cmH2O. Lifetime supplies. esomeprazole 40 mg delayed release oral capsule (1 source) Proton Pump Inhibitor take 1 capsule by mouth once daily, then take 6 capsules by mouth in the morning esomeprazole (NEXIUM) 40 mg capsule Take 40 mg by mouth DAILY (6 AM). 0 Active Comment on above: Take 40 mg by mouth DAILY (6 AM). MULTI-VITAMIN ORAL (1 source) MULTI-VITAMIN OR AL Indications: Pruritus ani Take by mouth. 0 Active Comment on above: Take by mouth. Problems Active Problems Problem Classification Problem Date Documented Da te Episodic/Chronic Essential hypertension (1 source) Essential (primary) hypertension; Translations: [Essential (primary) hypertension] Onset: 04-13-2025 Chronic Nonspecific chest pain (16 sources) Chest pain; Translations: [Chest pain, unspecified] 06-05-2017 Episodic Residual codes; unclassified (16 sources) Obstructive sleep apnea syndrome; Translations: [Obstructive sleep apnea (adult) (pediatric)] 06-05-2017 Chronic Residual codes; unclassified (1 source) Obstructive sleep apnea (adult) (pediatric); Translations: [TRISH on CPAP] Onset: 07-21-2022 Chronic Residual codes; unclassified (1 source) Dependence on other enabling machines and devices; Translations: [TRSIH on CPAP] Onset: 07-21-2022 Chronic Thyroid disorders (18 sources) Hypothyroidism; Translations: [Hypothyroidism, unspecified] Onset: 06-07-2017 12-31-2017 Chronic Past or Other Problems Problem Classification Problem Date Documented Da te Episodic/Chronic Other inflammatory condition of skin (1 source) Pruritus ani; Translations: [Pruritus ani] Onset: 11-17-2013 11-17-2013 Episodic Residual codes; unclassified (1 source) Menopause present; Translations: [Asymptomatic menopausal state] Onset: 06-07-2017 12-31-2017 Episodic Results Test Name Value Interpretation Reference Range Facility Calculated very low density lipoprotein (VLDL) cholesterol measurementOrdered By: Anisha Sahni on 04-06-2025 Calculated very low density lipoprotein (VLDL) cholesterol measurement 11 mg/dL 5-40 [facility] LDL calc ser/plasOrdered By: Anisha Sahni on 04-06-2025 Cholesterol in LDL [Mass/Vol] 99 mg/dL [facility] Comment on above: Ssmfkcorxp=802-565 m g/dL & Higher Igsi=616 mg/dL or greaterFriedwald Equation for LDL-C Lipid Profileon 04-06-2025 CHOL:HDL 2.58 Normal [facility] Comment on above: Order Comment: Order Date: 04/06/25 Order Info: [id number] - LIPID Performed By: #### L 500.4100 #### [facility] [address] [place], [place], [address] Cholesterol [Mass/Vol] 180 mg/dL Normal <=200 [facility] Comment on above: Order Comment: Order Date: 04/06/25 Order Info: [id number] - LIPID Result Comment: Chol esterol level, Desirable <200 mg/dL Borderline high cholesterol 200-239 mg/dL High cholesterol >=240 mg/dL Recommendations of the NCEP Adult Treatment Panel for the following risk-cutoff thresholds for the [place] population. Performed By: #### L 500.4100 #### [facility] [address] [place], [address] Cholesterol in HDL [Mass/Vol] 70 mg/dL Normal [facility] Comment on above: Order Comment: Order Date: 04/06/25 Order Info: [id number] - LIPID Result Comment: Naz onal Cholesterol Education Program (NCEP) guidelines: <40 mg/dL: Low HDL-cholesterol (major risk factor for CHD) >= 60 mg/dL: High HDL-cholesterol (negative risk factor for CHD) HDL-cholesterol is affected by a number of factors, e.g. smoking, exercise, hormones, sex and age. Performed By: #### L 500.4100 #### [facility] [address] [place], [address] Cholesterol in LDL [Mass/Vol] 99 mg/dL Normal [facility] Comment on above: Order Comment: Order Date: 04/06/25 Order Info: [id number] - LIPID Result Comment: Bord pnajjz=502-112 mg/dL Higher Tldn=168 mg/dL or greater Friedwald Equation for LDL-C Performed By: #### L 500.4100 #### [facility] [address] [place], [address] Cholesterol in VLDL [Mass/Vol] 11 mg/dL Normal 5-40 [facility] Comment on above: Order Comment: Order Date: 04/06/25 Order Info: [id number] - LIPID Performed By: #### L 500.4100 #### [facility] [address] [place], [address] Triglyceride [Mass/Vol] 55 mg/dL Normal [facility] Comment on above: Order Comment: Order Date: 04/06/25 Order Info: [id number] - LIPID Result Comment: The drugs N-Acetylcysteine and Metamizole may falsely depress this assay. Normal range: <150 mg/dL Borderline High: 150-199 mg/dL High: 200-499 mg/dL Very High: >500 mg/dL Performed By: #### L 500.4100 #### [facility] [address] [place], [address] Screening total cholesterol/ high density lipoprotein (HDL) cholesterol ratioOrdered By: Anisha Sahni on 04-06-2025 Cholesterol.total/Cho lesterol in HDL [Mass ratio] 2.58 {ratio} [facility] Serum or plasma cholesterol in HDL measurement (mass/volume)Ordered By: Anisha Sahni on 04-06-2025 Cholesterol in HDL [Mass/Vol] 70 mg/dL >40 [facility] Comment on above: National Cholesterol Education Program (NCEP) guidelines:<40 mg/dL: Low HDL-cholesterol (major risk factor for CHD)>= 60 mg/dL: High HDL-cholesterol (negative risk factor for CHD)HDL-cholesterol is affected by a number of factors, e.g. smoking, exercise, hormones, sex and age. Serum or plasma cholesterol measurement (mass/volume)Ordered By: Anisha Sahni on 04-06-2025 Cholesterol [Mass/Vol] 180 mg/dL <201 [facility] Comment on above: Cholesterol level, D esirable <200 mg/dLBorderline high cholesterol 200-239 mg/dLHigh cholesterol >=240 mg/dLRecommendations of the NCEP Adult Treatment Panel for the following risk-cutoff thresholds for the [place] population. Triglycerides measurementOrd ered By: Anisha Sahni on 04-06-2025 Triglyceride [Mass/Vol] 55 mg/dL <199 [facility] Comment on above: The drugs N-Acetylcy steine and Metamizole may falsely depress this assay. Normal range: <150 mg/dLBorderline High: 150-199 mg/dLHigh: 200-499 mg/dLVery High: >500 mg/dL Anion gap in Serum or Plasma Ordered By: Socrates Lombardo on 12-27-2024 Anion gap [Moles/Vol] 11 mmol/L - [facility] BUN/creatinine ratioOrdered By: Socrates Lombardo on 12-27-2024 Urea nitrogen/Creatinine [Mass ratio] 13.1 mg/mg 10- [facility] Bilirubin, totalOrdered By: Socrates Lombardo on 12-27-2024 Bilirubin [Mass/Vol] 1.02 mg/dL 0.00-1.30 [facility] Carbon dioxide, total [Moles /volume] in Central venous bloodOrdered By: Socrates Lombardo on 12-27-2024 CO2 [Moles/Vol] 24.3 mmol/L 21.0-32.0 [facility] Chloride assayOrdered By: Joaquín Lombardo on 12-27-2024 Chloride [Moles/Vol] 103 mmol/L 98-108 [facility] Comprehensive Metabolic Prof ilon 12-27-2024 Albumin [Mass/Vol] 4.2 g/dL Normal 3.5-5.0 [facility] Comment on above: Performed By: #### L 506.1001, L501.47465, L501.9520, L506.0400, L500.4050 #### [facility] [address] [place], [address] Albumin/Globulin [Mass ratio] 1.4 {ratio} Normal 0.9-2.4 [facility] Comment on above: Performed By: #### L 506.1001, L501.77154, L501.9520, L506.0400, L500.4050 #### [facility] [address] [place], [address] ALK PHOS 56 U/L Normal 35-104 [facility] Comment on above: Performed By: #### L 506.1001, L501.23320, L501.9520, L506.0400, L500.4050 #### [facility] [address] [place], [address] ALT [Catalytic activity/Vol] 14 U/L Normal <=34 [facility] Comment on above: Performed By: #### L 506.1001, L501.63061, L501.9520, L506.0400, L500.4050 #### [facility] [address] [place], [address] AST [Catalytic activity/Vol] 27 U/L Normal <=31 [facility] Comment on above: Performed By: #### L 506.1001, L501.36639, L501.9520, L506.0400, L500.4050 #### [facility] [address] [place], [address] Bilirubin [Mass/Vol] 1.02 mg/dL Normal 0.00-1.30 [facility] Comment on above: Performed By: #### L 506.1001, L501.33007, L501.9520, L506.0400, L500.4050 #### [facility] [address] [place], [address] BUN/CRE 13.1 RATIO Normal 10-20 [facility] Comment on above: Performed By: #### L 506.1001, L501.81074, L501.9520, L506.0400, L500.4050 #### [facility] [address] [place], [address] Calcium [Mass/Vol] 9.6 mg/dL Normal 7.6-11.0 [facility] Comment on above: Performed By: #### L 506.1001, L501.55476, L501.9520, L506.0400, L500.4050 #### [facility] [address] [place], [address] Chloride [Moles/Vol] 103 mmol/L Normal 98-108 [facility] Comment on above: Performed By: #### L 506.1001, L501.83688, L501.9520, L506.0400, L500.4050 #### [facility] [address] [place], [address] CO2 [Moles/Vol] 24.3 mmol/L Normal 21.0-32.0 [facility] Comment on above: Performed By: #### L 506.1001, L501.63756, L501.9520, L506.0400, L500.4050 #### [facility] [address] [place], [address] Creatinine [Mass/Vol] 0.91 mg/dL Normal 0.70-1.20 [facility] Comment on above: Performed By: #### L 506.1001, L501.66990, L501.9520, L506.0400, L500.4050 #### [facility] [address] [place], [address] GAP 11 Normal 5-15 [facility] Comment on above: Performed By: #### L 506.1001, L501.75532, L501.9520, L506.0400, L500.4050 #### [facility] [address] [place], [address] GFR/1.73 sq M.predicted among non-blacks MDRD (S/P/Bld) [Vol rate/Area] 73 mL/min/{1.73_m2} Normal >60 [facility] Comment on above: Result Comment: mL/m in/1.73m2 CKD-EPI Creatinine Equation (2020) Performed By: #### L 506.1001, L501.42791, L501.9520, L506.0400, L500.4050 #### [facility] [address] [place], [address] Globulin (S) [Mass/Vol] 3.0 g/dL Normal 2.2-4.2 [facility] Comment on above: Performed By: #### L 506.1001, L501.22143, L501.9520, L506.0400, L500.4050 #### [facility] [address] [place], [address] Glucose [Mass/Vol] 91 mg/dL Normal 70-99 [facility] Comment on above: Performed By: #### L 506.1001, L501.74425, L501.9520, L506.0400, L500.4050 #### [facility] [address] [place], [address] Potassium [Moles/Vol] 3.9 mmol/L Normal 3.3-5.1 [facility] Comment on above: Result Comment: Hemo lysis present, Results??could be affected. ?? Performed By: #### L 506.1001, L501.87727, L501.9520, L506.0400, L500.4050 #### [facility] [address] [place], [address] Sodium [Moles/Vol] 138 mmol/L Normal 133-145 [facility] Comment on above: Performed By: #### L 506.1001, L501.73608, L501.9520, L506.0400, L500.4050 #### [facility] [address] [place], [address] T PROT 7.1 g/dL Normal 5.9-8.4 [facility] Comment on above: Performed By: #### L 506.1001, L501.43782, L501.9520, L506.0400, L500.4050 #### [facility] [address] [place], [address] Urea nitrogen [Mass/Vol] 12 mg/dL Normal 4-19 [facility] Comment on above: Performed By: #### L 506.1001, L501.07492, L501.9520, L506.0400, L500.4050 #### [facility] [address] [place], [address] Free T3on 12-27-2024 Free T3 [Mass/Vol] 4.0 pg/mL High 2.18-3.98 [facility] Comment on above: Performed By: #### L 506.1001, L501.53782, L501.9520, L506.0400, L500.4050 #### [facility] [address] [place], [address] Free C6Rrhcrhn By: Socrates morfin on 12-27-2024 Free T3 [Mass/Vol] 4.0 pg/mL High 2.18-3.98 [facility] Glomerular filtration rate ( GFR) estimation/1.73 sq m using serum, plasma, or whole bOrdered By: Socrates Lombardo on 12-27-2024 GFR/1.73 sq M.predicted among non-blacks MDRD (S/P/Bld) [Vol rate/Area] 73 mL/min/{1.73_m2} >60 [facility] Comment on above: mL/min/1.73m2 CKD-EP I Creatinine Equation (2020) Laboratory - Chemistry and C hemistry - challengeOrdered By: Socrates Lombardo on 12-27-2024 AST [Catalytic activity/Vol] 27 U/L <32 [facility] Potassium measurement (mass/ volume)Ordered By: Socrates Lombardo on 12-27-2024 Potassium (Unsp spec) [Mass/Vol] 3.9 mmol/L 3.3-5.1 [facility] Comment on above: Hemolysis present, R esults could be affected. Serum creatinine measurement (mass/volume)Ordered By: Socrates Lombardo on 12-27-2024 Creatinine [Mass/Vol] 0.91 mg/dL 0.70-1.20 [facility] Serum globulin measurementOr dered By: Socrates Lombardo on 12-27-2024 Globulin (S) [Mass/Vol] 3.0 g/dL 2.2-4.2 [facility] Serum glucose measurement (m ass/volume)Ordered By: Socrates Lombardo on 12-27-2024 Glucose [Mass/Vol] 91 mg/dL 70-99 [facility] Serum or plasma alanine chery otransferase (ALT) measurementOrdered By: Socrates Lombardo on 12-27-2024 ALT [Catalytic activity/Vol] 14 U/L <35 [facility] Serum or plasma albumin leonila urement (mass/volume)Ordered By: Socrates Lombardo on 12-27-2024 Albumin [Mass/Vol] 4.2 g/dL 3.5-5.0 [facility] Serum or plasma albumin/glob ulin mass ratioOrdered By: Socrates Lombardo on 12-27-2024 Albumin/Globulin [Mass ratio] 1.4 {ratio} 0.9-2.4 [facility] Serum or plasma alkaline robert sphatase measurementOrdered By: Socrates Lombardo on 12-27-2024 ALP [Catalytic activity/Vol] 56 U/L 35-104 [facility] Serum or plasma calcium leonila urement (mass/volume)Ordered By: Socrates Lombardo on 12-27-2024 Calcium [Mass/Vol] 9.6 mg/dL 7.6-11.0 [facility] Serum or plasma urea nitroge n measurement (mass/volume)Ordered By: Socrates Lombardo on 12-27-2024 Urea nitrogen [Mass/Vol] 12 mg/dL 4-19 [facility] Sodium levelOrdered By: Charity Lombardo on 12-27-2024 Sodium [Moles/Vol] 138 mmol/L 133-145 [facility] T4 Free Directon 12-27-2024 T4 FREE DIRECT 1.60 ng/dL High 0.76-1.46 [facility] Comment on above: Performed By: #### L 506.1001, L501.90911, L501.9520, L506.0400, L500.4050 #### [facility] [address] [facility] [place], [place], [address] T4 freeOrdered By: Socrates morfin on 12-27-2024 Free T4 [Mass/Vol] 1.60 ng/dL High 0.76-1.46 [facility] TSH DL <= 0.005 mIU/L QnOrde red By: Socrates Lombardo on 12-27-2024 TSH Qn 1.350 uIU/mL 0.300-4.200 [facility] Thyroid Stim Hormone (TSH)on 12-27-2024 TSH 1.350 uIU/mL Normal 0.300-4.200 [facility] Comment on above: Performed By: #### L 506.1001, L501.65643, L501.9520, L506.0400, L500.4050 #### [facility] [address] [place], [address] Total proteinOrdered By: Stu Lombardo on 12-27-2024 Protein [Mass/Vol] 7.1 g/dL 5.9-8.4 [facility] Vitamin D,25 Hydroxyon 12-27 Vitamin D 25-OH 43.7 ng/mL Normal 30-100 [facility] Comment on above: Result Comment: Anupama min D Status Deficiency: <20 ng/mL (50nmol/L) Insufficiency: 20-30 ng/mL (50-75 nmol/L) Sufficiency: 30-100 ng/mL (75-250 nmol/L) Toxicity: >100 ng/mL (>250 nmol/L) Performed By: #### L 506.1001, L501.25940, L501.9520, L506.0400, L500.4050 #### [facility] [address] [place], [address] Comprehensive Metabolic Prof ilon 06-30-2024 Albumin [Mass/Vol] 3.6 g/dL Normal 3.2-5.0 [facility] Comment on above: Performed By: #### L 500.4050, L506.0400, L501.9520, L501.68109 #### [facility] [address] [place], [address] Albumin/Globulin [Mass ratio] 1.0 {ratio} Normal 0.9-2.4 [facility] Comment on above: Performed By: #### L 500.4050, L506.0400, L501.9520, L501.08477 #### [facility] [address] [place], [address] ALK P 60 U/L Normal 45-117 [facility] Comment on above: Performed By: #### L 500.4050, L506.0400, L501.9520, L501.63355 #### [facility] [address] [place], [address] ALT [Catalytic activity/Vol] 16 U/L Normal 13-56 [facility] Comment on above: Performed By: #### L 500.4050, L506.0400, L501.9520, L501.87897 #### [facility] [address] [place], [address] AST [Catalytic activity/Vol] 21 U/L Normal 15-37 [facility] Comment on above: Performed By: #### L 500.4050, L506.0400, L501.9520, L501.02470 #### [facility] [address] [place], [address] Bilirubin [Mass/Vol] 1.20 mg/dL High 0.20-1.00 [facility] Comment on above: Result Comment: For patients on eltrombopag therapy, use of Dimension [place] TBIL is not recommended. Performed By: #### L 500.4050, L506.0400, L501.9520, L501.80242 #### [facility] [address] [place], [address] BUN/CRE 11.7 RATIO Normal 10-20 [facility] Comment on above: Performed By: #### L 500.4050, L506.0400, L501.9520, L501.13585 #### [facility] [address] [place], [address] CA,Total 8.8 mg/dL Normal 8.5-10.1 [facility] Comment on above: Performed By: #### L 500.4050, L506.0400, L501.9520, L501.13613 #### [facility] [address] [place], [address] Chloride [Moles/Vol] 107 mmol/L Normal 98-107 [facility] Comment on above: Performed By: #### L 500.4050, L506.0400, L501.9520, L501.32703 #### [facility] [address] [place], [address] CO2 [Moles/Vol] 29.0 mmol/L Normal 21.0-32.0 [facility] Comment on above: Performed By: #### L 500.4050, L506.0400, L501.9520, L501.30800 #### [facility] [address] [place], [address] Creatinine [Mass/Vol] 0.86 mg/dL Normal 0.55-1.02 [facility] Comment on above: Result Comment: The validity of the calculated GFR GFRAA in patients over 70 years has not been determined. Clinical correlation is essential. Performed By: #### L 500.4050, L506.0400, L501.9520, L501.50197 #### [facility] [address] [place], [address] EST GFR - AA 88 mL/min Normal >60 [facility] Comment on above: Result Comment: Afri can [place] GFR Calc Performed By: #### L 500.4050, L506.0400, L501.9520, L501.55331 #### [facility] [address] [place], [address] GAP 5 Normal 5-15 [facility] Comment on above: Performed By: #### L 500.4050, L506.0400, L501.9520, L501.42430 #### [facility] [address] [place], [address] GFR/1.73 sq M.predicted among non-blacks MDRD (S/P/Bld) [Vol rate/Area] 73 mL/min/{1.73_m2} Normal >60 [facility] Comment on above: Result Comment: Non- GFR Calc Performed By: #### L 500.4050, L506.0400, L501.9520, L501.19636 #### [facility] [address] [place], [address] Globulin (S) [Mass/Vol] 3.5 g/dL Normal 2.2-4.2 [facility] Comment on above: Performed By: #### L 500.4050, L506.0400, L501.9520, L501.64285 #### [facility] [address] [place], [address] Glucose [Mass/Vol] 86 mg/dL Normal 74-106 [facility] Comment on above: Performed By: #### L 500.4050, L506.0400, L501.9520, L501.87471 #### [facility] [address] [place], [address] Potassium [Moles/Vol] 3.7 mmol/L Normal 3.5-5.1 [facility] Comment on above: Performed By: #### L 500.4050, L506.0400, L501.9520, L501.62977 #### [facility] [address] [place], [address] Sodium [Moles/Vol] 141 mmol/L Normal 136-145 [facility] Comment on above: Performed By: #### L 500.4050, L506.0400, L501.9520, L501.51905 #### [facility] [address] [place], [address] T PROT 7.1 g/dL Normal 6.4-8.2 [facility] Comment on above: Performed By: #### L 500.4050, L506.0400, L501.9520, L501.32442 #### [facility] [address] [place], [address] Urea nitrogen [Mass/Vol] 10 mg/dL Normal 7-18 [facility] Comment on above: Performed By: #### L 500.4050, L506.0400, L501.9520, L501.82109 #### [facility] [address] [place], [address] Free T3on 06-30-2024 Free T3 [Mass/Vol] 3.5 pg/mL Normal 2.18-3.98 [facility] Comment on above: Performed By: #### L 500.4050, L506.0400, L501.9520, L501.41143 #### [facility] [address] [place], [address] T4 Free Directon 06-30-2024 T4 FREE DIRECT 1.17 ng/dL Normal 0.76-1.46 [facility] Comment on above: Performed By: #### L 500.4050, L506.0400, [id number], [id number] #### [facility] [address] [place], [address] Thyroid Stim Hormone (TSH)on 06-30-2024 TSH 1.690 uIU/mL Normal 0.358-3.740 [facility] Comment on above: Performed By: #### L 500.4050, L506.0400, [id number], L501.83198 #### [facility] [address] [place], [address] Basophil percentageOrdered B y: Socrates Grupo on 12-22-2023 Bilirubin [Mass/Vol] 0.90 mg/dL 0.20-1.00 [facility] Comment on above: For patients on eltr ombopag therapy, use of Dimension [place] TBIL is not recommended. Chloride [Moles/Vol] 106 mmol/L 98-107 [facility] Glucose [Mass/Vol] 98 mg/dL 74-106 [facility] Potassium [Moles/Vol] 3.8 mmol/L 3.5-5.1 [facility] Protein [Mass/Vol] 7.4 g/dL 6.4-8.2 [facility] Sodium [Moles/Vol] 139 mmol/L 136-145 [facility] - Chemistry and C hemistry - challengeOrdered By: Socrates Lombardo on 12-22-2023 Albumin/Globulin [Mass ratio] 1.1 {ratio} 0.9-2.4 [facility] ALP [Catalytic activity/Vol] 63 U/L 45-117 [facility] ALT [Catalytic activity/Vol] 21 U/L 13-56 [facility] CO2 [Moles/Vol] 30.0 mmol/L 21.0-32.0 [facility] Globulin (S) [Mass/Vol] 3.6 g/dL 2.2-4.2 [facility] Urea nitrogen/Creatinine [Mass ratio] 9.4 mg/mg 10-20 [facility] No Panel InformationOrdered By: Socrates Lombardo on 12-22-2023 Estimated GFR (MDRD) Amer 77 mL/min >60 [facility] Comment on above: GFR Calc Estimated GFR (MDRD) Non-Af Amer 64 mL/min >60 [facility] Comment on above: Non- GFR Calc Free Triiodothyronine (T3) pg/dL 3.6 pg/mL 2.18-3.98 [facility] Vitamin D 25-Hydroxy 58.6 ng/mL [facility] Comment on above: Vitamin D 25(OH) Sta tus Range Deficiency <20 ng/mL (50nmol/L) Insufficiency 20 - 30 ng/mL (50 - 75 nmol/L) Sufficiency 30 - 100 ng/mL (75 - 250 nmol/L) Toxicity >100 ng/mL (>250 nmol/L) Serum or plasma calcium leonila urement (mass/volume)Ordered By: Socrates Lombardo on 12-22-2023 Calcium [Mass/Vol] 9.4 mg/dL 8.5-10.1 [facility] Serum or plasma creatinine m easurement (mass/volume)Ordered By: Socrates Lombardo on 12-22-2023 Creatinine [Mass/Vol] 0.96 mg/dL 0.55-1.02 [facility] Comment on above: The validity of the calculated GFR & GFRAA in patients over 70 years has not been determined. Clinical correlation is essential. Serum or plasma thyroid stim ulating hormone (TSH) measurement (units/volume)Ordered By: Socrates Lombardo on 12-22-2023 TSH Qn 1.72 uIU/mL 0.358-3.74 [facility] Serum or plasma urea nitroge n measurement (mass/volume)Ordered By: Socrates Lombardo on 12-22-2023 Urea nitrogen [Mass/Vol] 9 mg/dL 7-18 [facility] Thin prep Papanicolaou smear with manual screeningOrdered By: Socrates Lombardo on 12-22-2023 Thin prep Papanicolaou smear with manual screening 3.8 g/dL 3.2-5.0 [facility] Thin prep Papanicolaou smear with manual screening 28 U/L 15-37 [facility] Thin prep Papanicolaou smear with manual screening 3 5-15 [facility] Thin prep Papanicolaou smear with manual screening 1.34 ng/dL 0.76-1.46 [facility] Throat specimen bacteria hector ntification by cultureOrdered By: Christiano Peres on 03-17-2023 Bacteria identified Cx Nom (Throat) [facility] - Chemistry and C hemistry - challengeOrdered By: Delicia Roe on 02-17-2023 Free T4 [Mass/Vol] 1.26 ng/dL 0.76-1.46 [facility] T4 [Mass/Vol] 11.4 ug/dL 4.8-13.9 [facility] No Panel InformationOrdered By: Delicia Roe on 02-17-2023 Thyroglobulin Antibody 30.1 IU/mL 0.0-0.9 [facility] Comment on above: Thyroglobulin Antibo dy measured by [employer] Thyroid Stimulating Hormone (TSH) 0.45 uIU/mL 0.358-3.74 [facility] Serum or plasma thyroperoxid ase antibody assay (units/volume)Ordered By: Delicia Roe on 02-17-2023 TPO Ab Qn 208 [IU]/mL 0-34 [facility] Comment on above: Performed at: [facility] [address] [place], [place] [id number] Director: Woodrow Crooks PhD, Phone: [phone] at: [facility] [id number] [place], [place] [id number] Director: Germán Strauss MD, Phone: [phone] Thyroglobulin measurement by radioimmunoassay (KRYSTA)Ordered By: Delicia Roe on 02-17-2023 Thyroglobulin Ab KRYSTA Qn (S) 9.7 ng/mL . [facility] Comment on above: This test was develo ped and its performance characteristicsdetermined by [employer]. It has not been cleared or approvedby the Food and Drug Administration.Reference Range:Pubertal Childrenand Adults: <40According to the National Academy of Clinical Biochemistry,the reference interval for Thyroglobulin (TG) should berelated to euthyroid patients and not for patients whounderwent thyroidectomy. TG reference intervals for thesepatients depend on the residual mass of the thyroid tissueleft after surgery. Establishing a post-operative baselineis recommended. The assay quantitation limit is 2.0 ng/mL. Basophil percentageOrdered B y: Socrates Lombardo on 01-15-2023 Bilirubin [Mass/Vol] 1.10 mg/dL 0.20-1.00 [facility] Comment on above: For patients on eltr ombopag therapy, use of Dimension [place] TBIL is not recommended. Chloride [Moles/Vol] 104 mmol/L 98-107 [facility] Glucose [Mass/Vol] 88 mg/dL 74-106 [facility] Potassium [Moles/Vol] 3.6 mmol/L 3.5-5.1 [facility] Protein [Mass/Vol] 7.5 g/dL 6.4-8.2 [facility] Sodium [Moles/Vol] 140 mmol/L 136-145 [facility] - Chemistry and C hemistry - challengeOrdered By: Socrates Lombardo on 01-15-2023 ALP [Catalytic activity/Vol] 69 U/L 45-117 [facility] ALT [Catalytic activity/Vol] 18 U/L 13-56 [facility] CO2 [Moles/Vol] 28.0 mmol/L 21.0-32.0 [facility] Globulin (S) [Mass/Vol] 3.8 g/dL 2.2-4.2 [facility] Urea nitrogen/Creatinine [Mass ratio] 14.1 mg/mg 10-20 [facility] No Panel InformationOrdered By: Socrates Lombardo on 01-15-2023 Estimated GFR (MDRD) Amer 81 mL/min >60 [facility] Comment on above: GFR Calc Estimated GFR (MDRD) Non-Af Amer 67 mL/min >60 [facility] Comment on above: Non- GFR Calc Parathyroid Hormone (Intact) 48.5 pg/mL 18.4-80.1 [facility] Vitamin D 25-Hydroxy 47.0 ng/mL [facility] Comment on above: Vitamin D 25(OH) Sta tus Range Deficiency <20 ng/mL (50nmol/L) Insufficiency 20 - 30 ng/mL (50 - 75 nmol/L) Sufficiency 30 - 100 ng/mL (75 - 250 nmol/L) Toxicity >100 ng/mL (>250 nmol/L) Serum or plasma albumin leonila urement (mass/volume)Ordered By: Socrates Lombardo on 01-15-2023 Albumin [Mass/Vol] 3.7 g/dL 3.2-5.0 [facility] Serum or plasma albumin/glob ulin mass ratioOrdered By: Socrates Lombardo on 01-15-2023 Albumin/Globulin [Mass ratio] 1.0 {ratio} 0.9-2.4 [facility] Serum or plasma calcium leonila urement (mass/volume)Ordered By: Socrates Lombardo on 01-15-2023 Calcium [Mass/Vol] 9.5 mg/dL 8.5-10.1 [facility] Serum or plasma creatinine m easurement (mass/volume)Ordered By: Socrates Lombardo on 01-15-2023 Creatinine [Mass/Vol] 0.92 mg/dL 0.55-1.02 [facility] Comment on above: The validity of the calculated GFR & GFRAA in patients over 70 years has not been determined. Clinical correlation is essential. Serum or plasma urea nitroge n measurement (mass/volume)Ordered By: Socrates Lombardo on 05-26-2023 Urea nitrogen [Mass/Vol] 13 mg/dL 7-18 [facility] Thin prep Papanicolaou smear with manual screeningOrdered By: Socrates Lombardo on 01-15-2023 Thin prep Papanicolaou smear with manual screening 27 U/L 15-37 [facility] Thin prep Papanicolaou smear with manual screening 8 5-15 [facility] Basophil percentageOrdered B y: Dr. Lombardo on 12-18-2022 Bilirubin [Mass/Vol] 1.10 mg/dL 0.20-1.00 [facility] Comment on above: For patients on eltr ombopag therapy, use of Dimension [place] TBIL is not recommended. Chloride [Moles/Vol] 106 mmol/L 98-107 [facility] Glucose [Mass/Vol] 87 mg/dL 74-106 [facility] Potassium [Moles/Vol] 3.9 mmol/L 3.5-5.1 [facility] Protein [Mass/Vol] 7.4 g/dL 6.4-8.2 [facility] Sodium [Moles/Vol] 138 mmol/L 136-145 [facility] - Chemistry and C hemistry - challengeOrdered By: Dr. Lombardo on 12-18-2022 ALP [Catalytic activity/Vol] 76 U/L 45-117 [facility] ALT [Catalytic activity/Vol] 27 U/L 13-56 [facility] CO2 [Moles/Vol] 29.0 mmol/L 21.0-32.0 [facility] Globulin (S) [Mass/Vol] 3.6 g/dL 2.2-4.2 [facility] T4 [Mass/Vol] 11.7 ug/dL 4.8-13.9 [facility] Urea nitrogen/Creatinine [Mass ratio] 15.5 mg/mg 10-20 [facility] No Panel InformationOrdered By: Dr. Lombardo on 12-18-2022 Estimated GFR (MDRD) Amer 90 mL/min >60 [facility] Comment on above: GFR Calc Estimated GFR (MDRD) Non-Af Amer 75 mL/min >60 [facility] Comment on above: Non- GFR Calc Free Triiodothyronine (T3) pg/dL 3.2 pg/mL 2.18-3.98 [facility] Thyroid Stimulating Hormone (TSH) 1.27 uIU/mL 0.358-3.74 [facility] Serum or plasma albumin leonila urement (mass/volume)Ordered By: Dr. Lombardo on 12-18-2022 Albumin [Mass/Vol] 3.8 g/dL 3.2-5.0 [facility] Serum or plasma albumin/glob ulin mass ratioOrdered By: Dr. Lombardo on 12-18-2022 Albumin/Globulin [Mass ratio] 1.1 {ratio} 0.9-2.4 [facility] Serum or plasma calcium leonila urement (mass/volume)Ordered By: Dr. Lombardo on 12-18-2022 Calcium [Mass/Vol] 9.6 mg/dL 8.5-10.1 [facility] Serum or plasma creatinine m easurement (mass/volume)Ordered By: Dr. Lombardo on 12-18-2022 Creatinine [Mass/Vol] 0.84 mg/dL 0.55-1.02 [facility] Comment on above: The validity of the calculated GFR & GFRAA in patients over 70 years has not been determined. Clinical correlation is essential. Serum or plasma urea nitroge n measurement (mass/volume)Ordered By: Dr. Lombardo on 12-18-2022 Urea nitrogen [Mass/Vol] 13 mg/dL 7-18 [facility] Thin prep Papanicolaou smear with manual screeningOrdered By: Dr. Lombardo on 12-18-2022 Thin prep Papanicolaou smear with manual screening 21 U/L 15-37 [facility] Thin prep Papanicolaou smear with manual screening 3 5-15 [facility] - Chemistry and C hemistry - challengeOrdered By: Dr. Lombardo on 11-20-2022 Free T4 [Mass/Vol] 1.15 ng/dL 0.76-1.46 [facility] T4 [Mass/Vol] 10.5 ug/dL 4.8-13.9 [facility] No Panel InformationOrdered By: Dr. Lombardo on 11-20-2022 Free Triiodothyronine (T3) pg/dL 3.0 pg/mL 2.18-3.98 [facility] Thyroid Stimulating Hormone (TSH) 1.05 uIU/mL 0.358-3.74 [facility] Basophil percentageOrdered B y: Dr. Lombardo on 09-14-2022 Bilirubin [Mass/Vol] 1.10 mg/dL 0.20-1.00 [facility] Comment on above: For patients on eltr ombopag therapy, use of Dimension [place] TBIL is not recommended. Chloride [Moles/Vol] 105 mmol/L 98-107 [facility] Glucose [Mass/Vol] 92 mg/dL 74-106 [facility] Potassium [Moles/Vol] 3.5 mmol/L 3.5-5.1 [facility] Protein [Mass/Vol] 7.4 g/dL 6.4-8.2 [facility] Sodium [Moles/Vol] 140 mmol/L 136-145 [facility] - Chemistry and C hemistry - challengeOrdered By: Dr. Lombardo on 09-14-2022 ALP [Catalytic activity/Vol] 72 U/L 45-117 [facility] ALT [Catalytic activity/Vol] 22 U/L 13-56 [facility] CO2 [Moles/Vol] 27.0 mmol/L 21.0-32.0 [facility] Free T4 [Mass/Vol] 1.33 ng/dL 0.76-1.46 [facility] Globulin (S) [Mass/Vol] 3.8 g/dL 2.2-4.2 [facility] Urea nitrogen/Creatinine [Mass ratio] 15.4 mg/mg 10-20 [facility] No Panel InformationOrdered By: Dr. Lombardo on 09-14-2022 Estimated GFR (MDRD) Amer 82 mL/min >60 [facility] Comment on above: GFR Calc Estimated GFR (MDRD) Non-Af Amer 68 mL/min >60 [facility] Comment on above: Non- GFR Calc Free Triiodothyronine (T3) pg/dL 3.4 pg/mL 2.18-3.98 [facility] Thyroid Stimulating Hormone (TSH) 1.81 uIU/mL 0.358-3.74 [facility] Serum or plasma albumin leonila urement (mass/volume)Ordered By: Dr. Lombardo on 09-14-2022 Albumin [Mass/Vol] 3.6 g/dL 3.2-5.0 [facility] Serum or plasma albumin/glob ulin mass ratioOrdered By: Dr. Lombardo on 09-14-2022 Albumin/Globulin [Mass ratio] 0.9 {ratio} 0.9-2.4 [facility] Serum or plasma calcium leonila urement (mass/volume)Ordered By: Dr. Lombardo on 09-14-2022 Calcium [Mass/Vol] 9.1 mg/dL 8.5-10.1 [facility] Serum or plasma creatinine m easurement (mass/volume)Ordered By: Dr. Lombardo on 09-14-2022 Creatinine [Mass/Vol] 0.91 mg/dL 0.55-1.02 [facility] Comment on above: The validity of the calculated GFR & GFRAA in patients over 70 years has not been determined. Clinical correlation is essential. Serum or plasma urea nitroge n measurement (mass/volume)Ordered By: Dr. Lombardo on 09-14-2022 Urea nitrogen [Mass/Vol] 14 mg/dL 7-18 [facility] Thin prep Papanicolaou smear with manual screeningOrdered By: Dr. Lombardo on 09-14-2022 Thin prep Papanicolaou smear with manual screening 19 U/L 15-37 [facility] Thin prep Papanicolaou smear with manual screening 8 5-15 [facility] CNPNon 07-08-2022 DERIK Telephone (ANABELL) TAMARA GRAMAJO ([id number]) 1965 F Date Time Provider Department 07/08/22 SILVESTRE HERRING JR During your visit today, we recorded the following information about you: Moise Juan LPN 07/08/2022 9:27 AM Signed Spoke with [facility] and requestepap download. Waiting for report to be faxed Moise Juan LPN Allergies As of Date: 07/08/2022 Noted Allergy Reaction LATEX 11/29/2013 2 - Rash Date Reviewed: 11/16/2019 Reviewed by: Silvestre Herring Jr. - Fully Assessed Reason for Visit: cpap compliance [Other] Prescriptions as of 07/08/2022 - CPAP New Device: Auto PAP with humidification set at a range of 7-12 cmH2O. Lifetime supplies. - ARMOUR THYROID 30 mg tablet Take 30 mg by mouth once daily. - esomeprazole (NEXIUM) 40 mg capsule Take 40 mg by mouth DAILY (6 AM). - hydrochlorothiazide 25 mg tablet Take 12.5 mg by mouth once daily. - CALCIUM CARB/VIT D3/MINERALS (CALCIUM CARBONATE-VIT D3-MIN) 1,200 mgcalcium -1,000 unit chew Take by mouth. - MULTI-VITAMIN ORAL Take by mouth. Problem List As Of Date 07/08/2022 Noted Resolved Pruritus ani [L29.0] 11/17/2013 Asymptomatic menopausal state [Z78.0] 06/07/2017 Hypothyroidism, unspecified [E03.9] 06/07/2017 Encounter Status:Closed by MOISE JUAN on 07/08/22 Normal [facility] - Chemistry and C hemistry - challengeOrdered By: Dr. Lombardo on 06-03-2022 Free T4 [Mass/Vol] 1.30 ng/dL 0.76-1.46 [facility] No Panel InformationOrdered By: Dr. Lombardo on 06-03-2022 Free Triiodothyronine (T3) pg/dL 3.8 pg/mL 2.18-3.98 [facility] Thyroid Stimulating Hormone (TSH) 1.18 uIU/mL 0.358-3.74 [facility] Basophil percentageon 2021 Bilirubin [Mass/Vol] 0.60 mg/dL 0.20-1.00 [facility] Work Phone: Comment on above: For patients on eltr ombopag therapy, use of Dimension [place] TBIL is not recommended. Chloride [Moles/Vol] 105 mmol/L 98-107 [facility] Work Phone: Glucose [Mass/Vol] 107 mg/dL 74-106 [facility] Work Phone: Comment on above: Fasting Glucose resu lt from 100 to 125 mg/dL suggests IMPAIRED HOMEOSTASIS per A.D.A. criteria. Potassium [Moles/Vol] 3.3 mmol/L 3.5-5.1 [facility] Work Phone: Protein [Mass/Vol] 7.7 g/dL 6.4-8.2 [facility] Work Phone: Sodium [Moles/Vol] 139 mmol/L 136-145 [facility] Work Phone: Laboratory - Chemistry and C hemistry - challengeon 04-22-2022 ALP [Catalytic activity/Vol] 69 U/L 45-117 [facility] Work Phone: ALT [Catalytic activity/Vol] 20 U/L 13-56 [facility] Work Phone: CO2 [Moles/Vol] 28.0 mmol/L 21.0-32.0 [facility] Work Phone: Free T4 [Mass/Vol] 1.04 ng/dL 0.76-1.46 [facility] Work Phone: Globulin (S) [Mass/Vol] 3.9 g/dL 2.2-4.2 [facility] Work Phone: Urea nitrogen/Creatinine [Mass ratio] 15.3 mg/mg 10-20 [facility] Work Phone: No Panel Informationon 04-22 Estimated GFR (MDRD) Amer 82 mL/min >60 [facility] Work Phone: Comment on above: GFR Calc Estimated GFR (MDRD) Non-Af Amer 67 mL/min >60 [facility] Work Phone: Comment on above: Non- GFR Calc Free Triiodothyronine (T3) pg/dL 2.8 pg/mL 2.18-3.98 [facility] Work Phone: [phone] Thyroid Stimulating Hormone (TSH) 0.90 uIU/mL 0.358-3.74 [facility] Work Phone: Vitamin D 25-Hydroxy 43.9 ng/mL [facility] Work Phone: Comment on above: Vitamin D 25(OH) Sta tus Range Deficiency <20 ng/mL (50nmol/L) Insufficiency 20 - 30 ng/mL (50 - 75 nmol/L) Sufficiency 30 - 100 ng/mL (75 - 250 nmol/L) Toxicity >100 ng/mL (>250 nmol/L) Serum or plasma albumin leonila urement (mass/volume)on 04-22-2022 Albumin [Mass/Vol] 3.8 g/dL 3.2-5.0 [facility] Work Phone: Serum or plasma albumin/glob ulin mass ratioon 04-22-2022 Albumin/Globulin [Mass ratio] 1.0 {ratio} 0.9-2.4 [facility] Work Phone: Serum or plasma calcium leonila urement (mass/volume)on 04-22-2022 Calcium [Mass/Vol] 9.3 mg/dL 8.5-10.1 [facility] Work Phone: Serum or plasma creatinine m easurement (mass/volume)on 04-22-2022 Creatinine [Mass/Vol] 0.92 mg/dL 0.55-1.02 [facility] Work Phone: Comment on above: The validity of the calculated GFR & GFRAA in patients over 70 years has not been determined. Clinical correlation is essential. Serum or plasma urea nitroge n measurement (mass/volume)on 04-22-2022 Urea nitrogen [Mass/Vol] 14 mg/dL 7-18 [facility] Work Phone: Thin prep Papanicolaou smear with manual screeningon 04-22-2022 Thin prep Papanicolaou smear with manual screening 17 U/L 15-37 [facility] Work Phone: Thin prep Papanicolaou smear with manual screening 6 5-15 [facility] Work Phone: Laboratory - Chemistry and C hemistry - challengeon 03-18-2022 Free T4 [Mass/Vol] 1.37 ng/dL 0.76-1.46 [facility] Work Phone: No Panel Informationon 03-18 Free Triiodothyronine (T3) pg/dL 4.0 pg/mL 2.18-3.98 [facility] Work Phone: Thyroid Stimulating Hormone (TSH) 0.65 uIU/mL 0.358-3.74 [facility] Work Phone: Basophil percentageon 2021 Bilirubin [Mass/Vol] 0.70 mg/dL 0.20-1.00 [facility] Work Phone: Comment on above: For patients on eltr ombopag therapy, use of Dimension [place] TBIL is not recommended. Chloride [Moles/Vol] 103 mmol/L 98-107 [facility] Work Phone: Glucose [Mass/Vol] 99 mg/dL 74-106 [facility] Work Phone: Potassium [Moles/Vol] 3.7 mmol/L 3.5-5.1 [facility] Work Phone: Protein [Mass/Vol] 7.7 g/dL 6.4-8.2 [facility] Work Phone: Sodium [Moles/Vol] 138 mmol/L 136-145 [facility] Work Phone: Laboratory - Chemistry and C hemistry - challengeon 01-14-2022 ALP [Catalytic activity/Vol] 75 U/L 45-117 [facility] Work Phone: ALT [Catalytic activity/Vol] 29 U/L 13-56 [facility] Work Phone: CO2 [Moles/Vol] 31.0 mmol/L 21.0-32.0 [facility] Work Phone: Free T4 [Mass/Vol] 1.45 ng/dL 0.76-1.46 [facility] Work Phone: Globulin (S) [Mass/Vol] 3.9 g/dL 2.2-4.2 [facility] Work Phone: Urea nitrogen/Creatinine [Mass ratio] 14.7 mg/mg 10-20 [facility] Work Phone: No Panel Informationon 01-14 Estimated GFR (MDRD) Amer 93 mL/min >60 [facility] Work Phone: Comment on above: GFR Calc Estimated GFR (MDRD) Non-Af Amer 77 mL/min >60 [facility] Work Phone: Comment on above: Non- GFR Calc Free Triiodothyronine (T3) pg/dL 3.9 pg/mL 2.18-3.98 [facility] Work Phone: Thyroid Stimulating Hormone (TSH) 0.66 uIU/mL 0.358-3.74 [facility] Work Phone: Vitamin D 25-Hydroxy 39.6 ng/mL [facility] Work Phone: Comment on above: Vitamin D 25(OH) Sta tus Range Deficiency <20 ng/mL (50nmol/L) Insufficiency 20 - 30 ng/mL (50 - 75 nmol/L) Sufficiency 30 - 100 ng/mL (75 - 250 nmol/L) Toxicity >100 ng/mL (>250 nmol/L) Serum or plasma albumin leonila urement (mass/volume)on 01-14-2022 Albumin [Mass/Vol] 3.8 g/dL 3.2-5.0 [facility] Work Phone: Serum or plasma albumin/glob ulin mass ratioon 01-14-2022 Albumin/Globulin [Mass ratio] 1.0 {ratio} 0.9-2.4 [facility] Work Phone: Serum or plasma calcium leonila urement (mass/volume)on 01-14-2022 Calcium [Mass/Vol] 9.2 mg/dL 8.5-10.1 [facility] Work Phone: Serum or plasma creatinine m easurement (mass/volume)on 01-14-2022 Creatinine [Mass/Vol] 0.82 mg/dL 0.55-1.02 [facility] Work Phone: Comment on above: The validity of the calculated GFR & GFRAA in patients over 70 years has not been determined. Clinical correlation is essential. Serum or plasma urea nitroge n measurement (mass/volume)on 01-14-2022 Urea nitrogen [Mass/Vol] 12 mg/dL 7-18 [facility] Work Phone: Thin prep Papanicolaou smear with manual screeningon 01-14-2022 Thin prep Papanicolaou smear with manual screening 24 U/L 15-37 [facility] Work Phone: Thin prep Papanicolaou smear with manual screening 4 5-15 [facility] Work Phone: Basophil percentageon 2021 Chloride [Moles/Vol] 106 mmol/L 98-107 [facility] Work Phone: Cholesterol [Mass/Vol] 181 mg/dL <200 [facility] Work Phone: Comment on above: <200 mg/dL Desirable 200-240 mg/dL Borderline >240 mg/dL High Risk Glucose [Mass/Vol] 84 mg/dL 74-106 [facility] Work Phone: Potassium [Moles/Vol] 3.6 mmol/L 3.5-5.1 [facility] Work Phone: Sodium [Moles/Vol] 139 mmol/L 136-145 [facility] Work Phone: Triglyceride [Mass/Vol] 67 mg/dL [facility] Work Phone: Comment on above: The drugs N-Acetylcy steine and Metamizole may falsely depress this assay.Serum Triglycerides Reference Interval Normal <150 mg/dL Borderline high 150 - 199 mg/dL High 200 - 499 mg/dL Very High > or = 500 mg/dL Laboratory - Chemistry and C hemistry - challengeon 10-17-2021 CO2 [Moles/Vol] 28.0 mmol/L 21.0-32.0 [facility] Work Phone: Free T4 [Mass/Vol] 0.97 ng/dL 0.76-1.46 [facility] Work Phone: Urea nitrogen/Creatinine [Mass ratio] 13.0 mg/mg 10-20 [facility] Work Phone: No Panel Informationon 10-17 Estimated GFR (MDRD) Amer 81 mL/min >60 [facility] Work Phone: Comment on above: GFR Calc Estimated GFR (MDRD) Non-Af Amer 67 mL/min >60 [facility] Work Phone: Comment on above: Non- GFR Calc Free Triiodothyronine (T3) pg/dL 3.4 pg/mL 2.18-3.98 [facility] Work Phone: Thyroid Stimulating Hormone (TSH) 4.31 uIU/mL 0.358-3.74 [facility] Work Phone: Serum or plasma calcium leonila urement (mass/volume)on 10-17-2021 Calcium [Mass/Vol] 9.4 mg/dL 8.5-10.1 [facility] Work Phone: Serum or plasma cholesterol in HDL measurement (mass/volume)on 10-17-2021 Cholesterol in HDL [Mass/Vol] 67 mg/dL [facility] Work Phone: Comment on above: The drugs N-Acetylcy steine and Metamizole may falsely depress this assay. Reference Range HDL <40 mg/dL Low HDL Cholesterol HDL >or= 60 mg/dL High HDL Cholesterol Serum or plasma cholesterol in VLDL measurement (mass/volume)on 10-17-2021 Cholesterol in VLDL [Mass/Vol] 13 mg/dL 5-40 [facility] Work Phone: Serum or plasma creatinine m easurement (mass/volume)on 10-17-2021 Creatinine [Mass/Vol] 0.92 mg/dL 0.55-1.02 [facility] Work Phone: Comment on above: The validity of the calculated GFR & GFRAA in patients over 70 years has not been determined. Clinical correlation is essential. Serum or plasma low density lipoprotein (LDL) cholesterol measurement (mass/volume)on 10-17-2021 Cholesterol in LDL [Mass/Vol] 101 mg/dL 0-130 [facility] Work Phone: Serum or plasma urea nitroge n measurement (mass/volume)on 10-17-2021 Urea nitrogen [Mass/Vol] 12 mg/dL 7-18 [facility] Work Phone: Thin prep Papanicolaou smear with manual screeningon 10-17-2021 Thin prep Papanicolaou smear with manual screening 5 5-15 [facility] Work Phone: Cervical or vagninal specime n microscopic examination by cytology stain (reported ason 09-02-2021 Cytology report Cyto stain Doc (Cvx/Vag) Comment [facility] Work Phone: Comment on above: The Pap smear is a s creening test designed to aid in thedetection of premalignant and malignant conditions of theuterine cervix. It is not a diagnostic procedure andshould not be used as the sole means of detecting cervicalcancer. Both false-positive and false-negative reports dooccur. Detection in cervical specim en of any of human papilloma virus (HPV) 16, 18, 31, 33,on 09-02-2021 HPV 16+18+31+33+35+39+45+ 51+52+56+58+59+66+68 DNA Probe+sig amp Ql (Cvx) Negative Negative [facility] Work Phone: Comment on above: This nucleic acid am plification test detects fourteen high- risk HPV types (16,18,31,33,35,39,45,51,52,56,58,59,66,68)without differentiation.Performed at: [address] [id number] Director: Sierra Rodrigues MD, Phone: [phone] at: =G - [facility] [address] [place] [id number] Director: Sierra Rodrigues MD, Phone: [phone] Laboratory - Cytologyon 08-23 Chemical Dependency Therapist Cyto stain Nom (Cvx/Vag) [ID] Comment [facility] Work Phone: Comment on above: Clarisse bermudez, Chief Procurement Officer (ASCP) Laboratory - Miscellaneous t estson 09-02-2021 Service comment (Unsp spec) [Interp] Comment [facility] Work Phone: Comment on above: This liquid based Th inPrep(R) pap test was screened withthe use of an image guided system. Service comment (Unsp spec) [Interp] . [facility] Work Phone: No Panel Informationon 09-02 Pathology report final diagnosis Narrative Comment [facility] Work Phone: Comment on above: NEGATIVE FOR INTRAEP ITHELIAL LESION OR MALIGNANCY. Vital Signs Date Time Vital Sign Value Performing Clinician Faci lity 12-23-2022 09:03-0400 Body height 160.02 cm [facility] Encounters Encounter Date Encounter Type Care Provider Facility Start: 04-06-2025 End: 04-06-[address] Oscar Geller MD Work Phone: -Laboratory [facility] Start: 04-06-2025 End: 04-06-[address] Anisha Sahni MD -Laboratory [facility] Start: 04-06-2025 End: 04-06-2025 ambulatory Anisha Sahni Facility:[facility] Start: 12-27-2024 End: 12-27-[address] Oscar Geller MD Work Phone: [facility] Work Phone: Start: 12-27-2024 End: 12-27-[address] [facility] Start: 12-27-2024 End: 12-27-2024 ambulatory Socrates Lombardo Facility:[facility] Start: 06-30-2024 End: 06-30-2024 ambulatory [facility] Facility:[facility] Start: 12-22-2023 End: 12-22-2023 ambulatory [facility] Work Phone: Start: 12-22-2023 End: 12-22-2023 Patient encounter procedure [facility]-Laboratory, [place] Work Phone: Start: 03-17-2023 End: 03-17-2023 ambulatory [facility] Work Phone: Start: 03-17-2023 End: 03-17-2023 [facility] Start: 02-17-2023 End: 02-17-2023 ambulatory [facility] Work Phone: Start: 02-17-2023 End: 02-17-2023 Patient encounter procedure [facility], [place] Work Phone: Start: 01-15-2023 End: 01-15-2023 ambulatory [facility] Work Phone: Start: 01-15-2023 End: 01-15-2023 Patient encounter procedure [facility], [place] Work Phone: Start: 12-30-2022 End: 12-30-2022 ambulatory [facility] Work Phone: Start: 12-30-2022 End: 12-30-2022 Patient encounter procedure [facility], [facility] Start: 12-23-2022 End: 12-23-2022 ambulatory [facility] Work Phone: Start: 12-23-2022 End: 12-23-2022 Patient encounter procedure [facility]-Outpatient Breast Imaging Start: 12-18-2022 End: 12-18-2022 ambulatory [facility] Work Phone: Start: 12-18-2022 End: 12-18-2022 Patient encounter procedure [facility] Start: 11-20-2022 End: 11-20-2022 ambulatory [facility] Work Phone: Start: 11-20-2022 End: 11-20-2022 Patient encounter procedure [facility] Start: 09-14-2022 End: 09-14-2022 ambulatory [facility] Work Phone: Start: 09-14-2022 End: 09-14-2022 Patient encounter procedure [facility] Start: 07-21-2022 End: 07-21-2022 ambulatory SILVESTRE HERRING JR Facility:[facility] Start: 07-17-2022 ambulatory Silvestre otto MD Work Phone: Sleep Comment on above: Compliance Report Start: 06-03-2022 End: 06-03-2022 ambulatory [facility] Work Phone: Start: 06-03-2022 End: 06-03-2022 Patient encounter procedure [facility] Start: 04-22-2022 End: 04-22-2022 ambulatory [facility] Work Phone: Start: 04-22-2022 End: 04-22-2022 Patient encounter procedure [facility] Start: 03-18-2022 End: 03-18-2022 Patient encounter procedure [facility] Start: 01-14-2022 End: 01-14-2022 Patient encounter procedure [facility] Start: 12-17-2021 End: 12-17-2021 Patient encounter procedure [facility]-Outpatient Breast [facility] Start: 10-17-2021 End: 10-17-2021 Patient encounter procedure [facility] Start: 09-02-2021 End: 09-02-2021 Patient encounter procedure [facility], Specimen Procedures Date Procedure Procedure Detail Performing Clinician Start: 12-27-2024 Vitamin D, 25-hydrox y measurement Dr. Oscar Geller MD Work Phone: Comment on above: Vitamin D StatusDefi ciency: <20 ng/mL (50nmol/L)Insufficiency: 20-30 ng/mL (50-75 nmol/L)Sufficiency: 30-100 ng/mL (75-250 nmol/L)Toxicity: >100 ng/mL (>250 nmol/L) Start: 03-17-2023 Bacteria identification test Start: 12-30-2022 Ultrasonography of abdomen Start: 12-23-2022 Dual energy X-ray absorptiometry Start: 12-23-2022 Screening mammography Start: 12-17-2021 Screening mammography Start: 12-06-2013 Colonoscopy Silvestre deal Jr., MD Work Phone: Plan of Treatment Date Care Activity Detail Author Start: 12-07-2023 Colonoscopy COLONOSCOPY [facility] Start: 12-07-2023 COLORECTAL CANCER SCREENING COLORECTAL CANCER SCREENING [facility] Start: 04-23-2022 Influenza vaccination INFLUENZA (#1) [facility] Start: 08-23-2021 DEPRESSION ASSESSMENT DEPRESSION ASSESSMENT [facility] Start: 2016 SHINGRIX VACCINE (1 of 2) SHINGRIX VACCINE (1 of 2) [facility] Start: 2011 COLOGUARD (FIT-DNA) COLOGUARD (FIT-DNA) [facility] Start: [address] COLONOGRAPHY [facility] Start: 2011 DIABETES SCREEN DIABETES SCREEN [facility] Start: 2011 FECAL OCCULT BLOOD FECAL OCCULT BLOOD [facility] Start: 2011 LIPID SCREEN LIPID SCREEN [facility] Start: 2011 SIGMOIDOSCOPY SIGMOIDOSCOPY [facility] Start: 2006 Mammography MAMMOGRAM [facility] Start: 1996 HPV TESTING HPV TESTING [facility] Start: 1987 PAP TESTING PAP TESTING [facility] Start: 1985 Urine microalbumin profile DTAP,TDAP,TD (1 - Tdap) [facility] Start: 1984 ANNUAL PCP TEAM CHRONIC DISEASE VISIT ANNUAL PCP TEAM CHRONIC DISEASE VISIT [facility] Start: 1984 HEPATITIS C SCREENING HEPATITIS C SCREENING [facility] Start: 1984 HIV SCREENING HIV SCREENING [facility] Start: 04-15-1967 COVID-19 VACCINE (#1) COVID-19 VACCINE (#1) [facility] Start: 1966 HEPATITIS B (1 of 3 - 3-dose series) HEPATITIS B (1 of 3 - 3-dose series) [facility] Thyroglobulin antibo dy measurement [facility] Thyroperoxidase Ab [Units/volume] in Serum or Plasma [facility] Immunizations Immunization Date Immunization Notes Care Provider Fa malika 05-20-2017 Influenza virus vaccine [facility] Payers Date Payer Category Payer Self-pay [id number] 2019 Unknown MMO MMO [employer] [id number] 2019-Present [phone] [address] [place] [address] PPO [id number] 2011 Unknown [id number] Unknown [id number] Unknown [id number] Social History Date Type Detail Facility Start: 06-05-2017 End: 06-05-2017 Tobacco smoking status UTIS Unknown if ever smoked [facility] Start: 06-05-2017 None [facility] Start: 06-05-2017 Spouse/ Signif icant Other [facility] Start: 06-05-2017 Non-smoker [facility] Start: 1965 Sex Assigned At Female [facility] Start: 06-05-2017 End: 12-31-2017 Tobacco smoking status NHIS Never smoked tobacco [facility] Start: 12-31-2017 Tobacco use and exposure Smokeless tobacco non-user [facility] Start: 11-16-2019 Alcohol intake Not Asked Bonnie montes [facility] Start: 1965 Sex Assigned At Not on file C [facility] Progress note 07-21-2022 Note Date & Type Note Facility 07-21-2022 Note HNO ID: [id number] Author: Silvestre Herring Jr., MD Service: ? Author Type: Physician Type: Progress Notes Filed: 07/21/2022 12:52 PM Note Text: [facility] Follow up/ Established patient visit Date of last visit : Visit date not found Interval history : Patient is a 56-year-old female with history of obstructive sleep apnea on CPAP and is tolerating the therapy quite well and had significant benefit from it. She has a consistent nighttime schedule and mentions to be very compliant with the therapy using it 30 out of 30 days and for more than 6 hours per night. We looked at the compliance report which shows residual AHI of only 0.3. Here for follow up for TRISH SLEEP APNEA Sleep apnea type : TRISH, DME: [facility] PAP History: Uses AutoPAP for 6-7 hours per night, 7 nights per week. Current PAP settin-12 cm H2O. Difficulties with AutoPAP: None Reviewed objective PAP compliance data: Yes Mask type: full face mask Mask issues: None Uses chin strap: No Uses humidity: Yes There is a perceived benefit by the patient: Yes Observers report abolition of snoring with AutoPAP use. SLEEP HYGIENE QUESTIONS: Bedtime : 11 pm Wake up Time : 6 am Time it takes to fall sleep : minutes Number of times patient wakes up per night : Couple of times Reason (s) why patient wakes up during the night : just moves and goes back to sleep. Estimated total sleep time ( in a 24 hour period of time) : 6-7 Naps : No PATIENT-ENTERED QUESTIONNAIRE SLEEP SCORES Sleep Questions 07/17/2022 Reason for visit: Sleep apnea Average hours slept in 24 hours: 7 Average hours of CPAP per night: 5.5 Percent of nights CPAP used at least 4 hours: 95 Accidents or near accidents due to drowsy drivin [place] Sleepiness Scale 07/17/2022 Score 4 (No daytime sleepiness) PROMIS CAT Sleep Disturbance 07/17/2022 PROMIS Sleep Disturbance T-Score 47 (within normal limits) PHQ-9 07/17/2022 Score 0 PROMIS Global Health - (T-Scores - the mean of general population = 50. Five points is a clinically meaningful difference.) 07/17/2022 Physical T-Score 61.9 Mental T-Score 62.5 SLEEP RELATED ROS Review of Systems ALLERGIES Allergen Reactions Latex Rash CURRENT MEDICATIONS: CPAP New Device: Auto PAP with humidification set at a range of 7-12 cmH2O. Lifetime supplies. ARMOUR THYROID 30 mg tablet Take 30 mg by mouth once daily. esomeprazole (NEXIUM) 40 mg capsule Take 40 mg by mouth DAILY (6 AM). hydrochlorothiazide 25 mg tablet Take 12.5 mg by mouth once daily. CALCIUM CARB/VIT D3/MINERALS (CALCIUM CARBONATE-VIT D3-MIN) 1,200 mgcalcium -1,000 unit chew Take by mouth. MULTI-VITAMIN ORAL Take by mouth. PHYSICAL EXAMINATION: Visit was conducted virtually. Patient was able to engage in a meaningful conversation and did not have any restriction. General appearance: NAD Mental status: Alert and oriented. Able to provide own history Neck: no visible goiter Constitutional: WNL Pulm: Normal work of breathing Skin: No visible rashes on exposed skin Eyes: conjugate, no obvious ptosis ENT : Nose and mouth midline Neuro: No focal deficits observed IMPRESSION: Trish on cpap (primary encounter diagnosis) Patient is a 56-year-old female with history of hypothyroidism, obstructive sleep apnea on AutoPap with pressure of 7 to 12 cm H2O. Patient has been tolerating the therapy quite well and has significant benefits from it in terms of feeling more refreshed during the day, and no more snoring or other complaints. She denies any choking or gasping episodes, waking up with snorting or snoring, acting out dreams, daytime fatigue or sleepiness, any issues with the mask or the therapy. She has auto renewal for her mask supplies which she gets every 3 months and is currently very satisfied with her therapy. She saw us back in 2019 and this is her first follow-up with us after that. Compliance report shows usage for 30 out of 30 days and for more than 6 hours per night with residual AHI of 0.3 and median average pressure of 7.5 cm H2O. PLAN: - Continue Auto CPAP at 7-12 cmH2O. - Remember to clean your mask and equipment regularly, as directed. - You should be eligible for new supplies approximately every 3-6 months, depending on your insurance coverage. Contact your Durable Medical Equipment (DME) company for new supplies as needed. - Follow up in [address] Herring. Shin Gifford MD [facility] [place] STAFF PHYSICIAN NOTE OF PERSONAL INVOLVEMENT IN CARE I have reviewed the progress note obtained and documented by Shin Gifford MD and I personally participated in the multani components. I have discussed the case and management of the patient's care. The following comments revise or confirm relevant multani components of the note. For this virtual visit, the patient has been identified by name and (MRN and photo identification as well if availab (more content not included)... [facility] Note 07-17-2022 Telephone Encounter - Joyce Garcia LPN - 07/17/2022 2:10 PM EST Note Date & Type Note Facility 07-17-2022 Miscellaneous Notes Formattin g of this note might be different from the original. Compliance report scanned into [employer]. Joyce Garcia LPN documented in this encounter [facility] Clinical Note 09-02-2021 Note Date & Type Note Facility 09-02-2021 Note [facility] Work Phone: Pap Smear Specimen Adequacy September 02, 2021 4:45pm Comment Satisfactory for evaluation. Endocervical and/or squamous metaplasticcells (endocervical component) are present. Comment on above: Satisfactory for irene luation. Endocervical and/or squamous metaplasticcells (endocervical component) are present. Evaluation note Note Date & Type Note Facility Evaluation note No assessment information availa ble [facility] Work Phone: Reason for referral (narrative) Note Date & Type Note Facility Reason for referral (narrative) No reason for referral information available [facility] Work Phone: Chief Complaint and Reason for Visit Chief Complaint SCREENING Chief Complaint SCREENING Disorder of bilirubin metabolism, unspecified Family History No Family History Records Found Relationship Condition Age at Onset Recorded Date/T bryanna Unknown Family History?- Unknown May 3:05pm Family History?- Unknown May 3:05pm Family History?Diabetes Unknown 2016 3:05pm Relationship Condition Age at Onset Recorded Date/T bryanna Unknown Family History?- Unknown May 2:05pm Family History?- Unknown May 2:05pm Family History?Diabetes Unknown Octo 2016 2:05pm Advance Directives No Advanced Directives Records Found Advance Directive Response Recorded Date/ Time Living Will No June 05 2:42pm Power of Automobile Body Worker No June 05, 2017 2:42pm Advance Directive Response Recorded Date/ Time Living Will No June 05 1:42pm Power of Automobile Body Worker No June 05, 2017 1:42pm Summary Purpose Additional Source Comments Goals (unrecognized section and content) Goals may be documented in a n alternate sectionGoals may be documented in an alternate sectionGoals may be documented in an alternate sectionGoals may be documented in an alternate sectionGoals may be documented in an alternate sectionGoals may be documented in an alternate sectionGoals may be documented in an alternate sectionGoals may be documented in an alternate sectionGoals may be documented in an alternate sectionGoals may be documented in an alternate sectionGoals may be documented in an alternate sectionGoals may be documented in an alternate sectionGoals may be documented in an alternate sectionGoals may be documented in an alternate section Source Comments (unrecognize d section and content) In the event this informatio n is protected by the Federal Confidentiality of Alcohol and Drug Abuse Patient Records regulations: The Federal rules restrict any use of the information to criminally investigate or prosecute any alcohol or drug abuse patient.[facility] Care Teams (unrecognized sec tion and content) Senior Pharmacy Technician Relationship Specialty Start Date End Date Oscar Geller MD PCP - General Family Medicine 11/09/13 Team Status: Active Member Role Status Dates Dr. Oscar Geller MD Family Provider Active Dr. Oscar Geller MD Primary Care Provider Active Team Status: Inactive Member Role Status Dates Dr. Oscar Geller MD Primary Care Provider Active Dr. Socrates Lombardo DO Attending Provider, Referring Provider Active Team Status: Active Member Role Status Dates Dr. Oscar Geller MD Primary Care Provider Active JOCELYNN Gray Attending Provider, Referring P rovider Active Team Status: Inactive Member Role Status Dates Dr. Oscar Geller MD Primary Care Provider Active JOCELYNN Gray Attending Provider, Referring P rovider Active Team Status: Inactive Member Role Status Dates Dr. Oscar Geller MD Primary Care Provider Active Dr. Christiano Peres MD Attending Provider Active Team Status: Inactive Member Role Status Dates Dr. Oscar Geller MD Primary Care Provider Active Start: December 27, 2024 End: December 27, 2024 Dr. Socrates Lombardo DO Attending Provider Active Start: December 27, 2024 End: December 27, 2024 Dr. Socrates Lombardo DO Referring Provider Active Start: December 27, 2024 End: December 27, 2024 Team Status: Active Member Role/Relationship Status Dates Dr. Oscar Geller MD Family Provider Active Dr. Oscar Geller MD Primary Care Provider Active Team Status: Inactive Member Role/Relationship Status Dates Dr. Oscar Geller MD Primary Care Provider Active Start: December 27, 2024 End: December 27, 2024 Dr. Socrates Lombardo DO Attending Provider Active Start: December 27, 2024 End: December 27, 2024 Dr. Socrates Lombardo DO Referring Provider Active Start: December 27, 2024 End: December 27, 2024 Team Status: Inactive Member Role/Relationship Status Dates Dr. Oscar Geller MD Primary Care Provider Active Start: April 06, 2025 End: April 06, 2025 Anisha Sahni MD Attending Provider Active Start : April 06, 2025 End: April 06, 2025 INFORMATION SOURCE (unrecogn ized section and content) DATE CREATED AUTHOR 07/22/2022 [facility] DATE CREATED AUTHOR AUTHOR'S ORGANIZ ATION 04/16/2025 [facility] FOR RECORDS PERTAINING TO PATIENTS WHO ARE OR HAVE BEEN ENROLLED IN A CHEMICAL DEPENDENCY/SUBSTANCEABUSE PROGRAM, SOME INFORMATION MAY BE OMITTED. This clinical summary was aggregated from multiple sources. Caution should be exercised in using it in the provision of clinical care. This summary normalizes information from multiple sources, and as a consequence, information in this document may materially change the coding, format and clinical context of patient data. In addition, data may be omitted in some cases. CLINICAL DECISIONS SHOULD BE BASED ON THE PRIMARY CLINICAL RECORDS. [employer] [facility]. provides no warranty or guarantee of the accuracy or completeness of information in this document.
[2025-07-11 10:53] LABS: AST(SGOT) 24 U/L (<=31); Alanine Aminotransfer ALT/SGPT 12 U/L (<=34); Albumin, Serum 4.4 g/dL (3.5-5.0); Alkaline Phosphatase 59 U/L (35-104); Anion Gap 10 (5-15); BUN 10 mg/dL (4-19); BUN/Creat Ratio 10.9 RATIO (10-20); Calcium,Total 9.7 mg/dL (7.6-11.0); Carbon Dioxide 26.6 mmol/L (21.0-32.0); Chloride 102 mmol/L (98-108); Free T3 4.0 pg/mL (2.18-3.98); Globulin 3.1 g/dL (2.2-4.2); Glucose 96 mg/dL (70-99); Magnesium 1.9 mg/dL (1.5-2.2); Potassium 3.9 mmol/L (3.3-5.1); Vitamin D,25 Hydroxy 47.5 ng/mL (30-100)
== END | disposition home or self-care (01) ==
LOC: MTLAB 09:17
PROVIDERS: PCP Family Medicine; Referring Provider Internal Medicine Endocrinology, Diabetes & Metabolism; Visit Provider Internal Medicine Endocrinology, Diabetes & Metabolism
DX: E03.8 Other specified hypothyroidism (principal); E55.9 Vitamin D deficiency, unspecified
CPT/HCPCS: 36415; 80053; 82306; 83735; 84439; 84443; 84481